=== PATIENT | female | born 1985 | race Caucasian/White ===

== ENCOUNTER 2016-05-21 01:15 | Emergency (ER) | payer BC ==
[~2016-05-21] VITALS: Ht 152.4 cm; Wt 87.4 kg
[~2016-05-21 01:15] MED LIST: ONDA4TAB10 SL; OXYC-57 PO
[2016-05-21 01:20] VITALS: TEMP 36.6; Ht 152.4 cm; Wt 87.4 kg
[2016-05-21] MEDS ORDERED: AMOXICILLIN 250 MG CAP PO STA (01:39)
[2016-05-21] MEDS ORDERED: OXYCODONE IR HOME PACK PO ONE (01:45)
[2016-05-21 01:51] VITALS: BP 126/63; PULSE 71; O2SAT 98
[2016-05-21] MEDS ORDERED: AMOX500C3 PO (01:55)
[2016-05-21] MEDS ORDERED: NAPR-1169 PO (02:02)
[2016-05-21] MEDS ORDERED: SUMA100T16 PO (02:03)
[2016-05-21] MEDS ORDERED: CITA20TA4 PO (02:04)
--- NOTE | 2016-05-21 03:15 | EMERGENCY ROOM VISIT NOTE ---
History First contact with patient: 01:25 Chief Complaint: EAR PAIN Stated Complaint: EAR PAIN History of Present Illness The patient is a 31 year old female who presents to the Emergency Room with complaints of left ear pain for the past few days described as aching, ranging in severity currently 6 out of 10. Nothing makes it better or worse. Patient denies cough, congestion, fever, chills, chest pain, dyspnea, dental pain, sore throat, dysphagia, neck pain, numbness, dizziness, loss of hearing. No injury to the area. Review of Systems See HPI for pertinent positives & negatives. A total of 10 systems reviewed and were otherwise negative. Past Medical/Surgical History Medical Problems: (1) Ovarian cyst Surgical Problems: (1) H/O section (2) H/O tubal ligation (3) History of cholecystectomy Family History Ovarian fibroids (mother) Seizures Social History Smoking Status: Never Smoker Alcohol Use: none Drug Use: none Marital Status: in relationship Housing Status: lives with significant other Occupation Status: employed Current/Historical Medications Scheduled Amoxicillin (Amoxil), 500 MG PO TID Citalopram Hydrobromide (Citalopram Hydrobromide), 20 MG PO DAILY Naproxen (Naprosyn), 500 MG PO BID Sumatriptan Succinate (Imitrex), 100 MG PO PRN Allergies Coded Allergies: Morphine (Verified Allergy, Unknown, RASH,GI UPSET,MIGRAINE, 05/21/16) Physical Exam Vital Signs Date Time Temp Pulse Resp B/P Pulse Ox O2 Delivery O2 Flow Rate FiO2 05/21/16 01:51 71 16 126/63 98 05/21/16 01:20 36.6 71 18 129/77 98 Room Air Pain Rating (0-10): 8.0 Physical Exam VITALS: Vitals are noted on the nurse's note and reviewed by myself. Vital signs stable. GENERAL: Pleasant female, in no acute distress, nondiaphoretic, well-developed well-nourished. SKIN: The skin was without rashes, erythema, edema, or bruising. There is no tenting of the skin. Capillary reflex less than 2 seconds. HEAD: Normocephalic atraumatic. EARS: Left tympanic membrane erythematous concerning for possible early otitis media, right External auditory canals clear, tympanic membranes pearly goode without erythema or effusion no mastoid tenderness bilaterally. EYES: Pupils equal round and reactive to light and accommodation. Conjunctivae without injection, sclerae without icterus. Extraocular movements intact. NOSE: Patent, turbinates without inflammation or discharge. No sinus tenderness. MOUTH: Mucous membranes moist. Pharynx without erythema or exudate. Uvula midline. Airway patent. Tongue does not deviate. Dental exam: No loose teeth. No palpable abscess. Overall dental hygiene fair. A few missing teeth NECK: Supple without nuchal rigidity. No lymphadenopathy. No thyromegaly. Cervical spine is nontender. No JVD. HEART: Regular rate and rhythm without murmurs gallops or rubs. LUNGS: Clear to auscultation bilaterally without wheezes, rales or rhonchi. No dullness to percussion. No retractions or accessory muscle use. ABDOMEN: Positive bowel sounds x 4. Normal tympanic percussion. Soft, nontender, without masses or organomegaly. Mccarty sign negative. No guarding or rebound tenderness. MUSCULOSKELETAL: No muscle atrophy, erythema, or edema noted. NEURO: Patient was alert and oriented to person place and time. Normal sensation to light and sharp touch. No focal neurological deficits. Medical Decision & Procedures Medications Administered Medications (Trade) Dose Ordered Sig/Sallie Route Start Time Stop Time Status Last Admin Dose Admin Amoxicillin (Amoxil Cap) 500 mg NOW STAT PO 05/21/16 01:39 05/21/16 01:40 DC 05/21/16 01:51 500 MG Oxycodone HCl (Roxicodone Immediate Rel 5MG Home Pack) 1 homepack UD ONCE PO 05/21/16 01:45 05/21/16 01:46 DC 05/21/16 01:51 1 HOMEPACK ED Course Prior records reviewed and summarized as above. Triage Nursing notes reviewed. The patient's history was concerning for ear pain Differential diagnosis: Etiologies such as otitis, dental infection, sinusitis, mastoiditis, cellulitis , abscess, as well as others were entertained.. Physical examination: The physical examination was consistent with otitis media ER treatment provided: Amoxicillin On reassessment the patient felt better. Diagnostics interpreted by me: Deferred This appears to be otitis media. Patient was started on antibiotics. She is advised follow-up with medicine in a week or here in the ER sooner for severe pain, fevers, neck stiffness, worsening signs or symptoms or as needed. Patient had no signs of mastoiditis or meningitis. She was well-appearing. The pt informed about the findings as listed above. All questions were answered and pleased with the treatment. Return instructions were outlined and the patient was discharged in stable condition. Outpatient prescription management: Amoxicillin Referral: The patient was referred back to primary care physician for follow-up in 2 to 3 days for a recheck of the current condition. Medical Decision As above Impression Primary Impression: Left otitis media Departure Information Dispostion Home / Self-Care Condition GOOD Prescriptions Amoxicillin (AMOXIL) 500 Mg Cap 500 MG PO TID for 10 Days, #30 CAP Prov: Joan Park .SALVADOR 05/21/16 Forms WORK / SCHOOL INSTRUCTIONS, HOME CARE DOCUMENTATION FORM, IMPORTANT VISIT INFORMATION Patient Instructions [facility] Additional Instructions Amoxicillin 500mg: Take one pill 3 times daily for 10 days for your infection. All antibiotics can cause diarrhea. If this occurs and you feel worse or it does not resolve in 1-2 days follow up with your doctor or return to the Emergency Department as this could be signs of serious underlying problems. Any medication can cause an allergic reaction, stop the pills immediately and return to the ER for rash, hives, breathing difficulties, or swelling. Oxycodone (OxyIR) 5mg: Take 1-2 pills every four hours for breakthrough pain. Avoid alcohol, operating machinery or dangerous equipment, working on ladders or roofs, DRIVING, or situations where being under the influence may be dangerous. It is recommended to use an [id number] stool softener such as Colace, 100mg twice daily while taking this medication to avoid constipation. Ibuprofen(Motrin, Advil) may be used for fever or pain. Use 600mg every six hours as needed. Take with food. Avoid using more than 2400mg in a 24 hour period. Do not use 2400mg per day for more than three consecutive days without physician direction. Prolonged inappropriate use can lead to stomach upset or ulcers. This medication can be taken if you need to drive, work, or perform activities which may be dangerous when taking narcotic pain medication. (AND/OR) Acetaminophen(Tylenol) may be used for fever or pain. Use 1000mg every six hours as needed. Avoid using more than 3000mg in a 24 hour period. This medication can be taken if you need to drive, work, or perform activities which may be dangerous when taking narcotic pain medication. Follow-up family care in 2-3 days. Return to ER sooner for neck stiffness, facial swelling, fever, redness, worsening signs or symptoms or as needed.
== END 2016-05-21 02:00 | disposition home or self-care (01) ==
LOC: C.EDB 01:16 → C.EDC 02:00
DX: H66.92 Otitis media, unspecified, left ear (principal); Z79.899 Other long term (current) drug therapy; Z84.2 Family history of other diseases of the genitourinary system; Z84.89 Family history of other specified conditions

== ENCOUNTER 2016-06-04 23:33 | Emergency (ER) | payer BC ==
[~2016-06-04] VITALS: Ht 152.4 cm; Wt 88.4 kg
[~2016-06-04 23:33] MED LIST changes: +CITA20TA4 PO; +NAPR-1169 PO; -ONDA4TAB10 SL; -OXYC-57 PO; +SUMA100T16 PO
[2016-06-04 23:42] VITALS: TEMP 36.8; Ht 152.4 cm; Wt 88.4 kg
[2016-06-04] MEDS ORDERED: KETOROLAC TROMETHAMINE 30 MG/ML VIAL IV STA (23:56)
[2016-06-05] MEDS ORDERED: OPTIRAY 320 IV PRN (00:15)
[2016-06-05 00:21] LABS: BASO % 0.2 %; BASO ABS # 0.03 K/uL (0-0.2); COMPLETE YES; EOS % 2.4 %; HEMATOCRIT 36.1 % (37-47); IG% 0.2 %; LYMPH ABS # 3.07 K/uL (1.2-3.4); MEAN CELL VOLUME 84.7 fL (80-100); MEAN CORPUSCULAR HEMOGLOBIN 27.5 pg (25-34); MEAN CORPUSCULAR HGB CONC 32.4 g/dl (32-36); MEAN PLATELET VOLUME 8.6 fL (7.4-10.4); MONO % 6.8 %; NEUT % 68.4 %; PLATELET COUNT 388 K/uL (130-400); RED BLOOD COUNT 4.26 M/uL (4.2-5.4); WHITE BLOOD COUNT 13.96 K/uL (4.8-10.8)
[2016-06-05 00:38] LABS: BUN/CREATININE RATIO 19.8 (10-20); C-REACTIVE PROTEIN 0.75 mg/dl (0-0.29); CALCIUM 8.5 mg/dl (8.5-10.1); CREATININE 0.77 mg/dl (0.60-1.20); POTASSIUM 3.7 mmol/L (3.5-5.1)
[2016-06-05 00:55] LABS: PREG INTERNAL NEGATIVE QC NEG CLEAR BACKGROUND; PREG INTERNAL POSITIVE QC POS CONTROL LINE
[2016-06-05] MEDS ORDERED: AMOXICIL/CLAVU 875MG HOME PACK PO ONE (01:30)
[2016-06-05] MEDS ORDERED: DEXAMETHASONE SOD INJ 10 MG/ML VIAL IV ONE (01:30)
[2016-06-05] MEDS ORDERED: PRED50TA PO (01:33)
[2016-06-05] MEDS ORDERED: AMOX875T PO (01:33)
[2016-06-05] MEDS ORDERED: OXYCODONE IR HOME PACK PO ONE ×2 (01:39→01:45)
[2016-06-05 01:44] VITALS: BP 122/82; PULSE 78; O2SAT 100
--- NOTE | 2016-06-05 01:54 | EMERGENCY ROOM VISIT NOTE ---
History First contact with patient: 23:45 Chief Complaint: EAR PAIN Stated Complaint: EAR PAIN History of Present Illness The patient is a 31 year old female who presents to the Emergency Room with complaints of left-sided facial pain for the past month and a half who has been on antibiotics and seeing the dentist is no improvement of symptoms. She describes it as aching, ranging in severity 6 out of 10 that occasionally radiates to her neck and into her face. Patient denies inner ear pain, headache , neck stiffness, sore throat, chest pain, dyspnea, numbness, tingling, bruxism. No injury to the area. Patient does see neurology for her migraines. She cannot recall her neurologist's name. She states she has the name at home. Review of Systems See HPI for pertinent positives & negatives. A total of 10 systems reviewed and were otherwise negative. Past Medical/Surgical History Medical Problems: (1) Ovarian cyst Surgical Problems: (1) H/O section (2) H/O tubal ligation (3) History of cholecystectomy Migraines Family History Ovarian fibroids (mother) Seizures Social History Smoking Status: Never Smoker Alcohol Use: none Drug Use: none Marital Status: in relationship Housing Status: lives with significant other Occupation Status: employed Current/Historical Medications Scheduled Amoxicillin & Pot Clavulanate (Augmentin 875-125 mg), 1 TAB PO BID Citalopram Hydrobromide (Citalopram Hydrobromide), 20 MG PO DAILY Prednisone (Prednisone), 50 MG PO DAILY Scheduled PRN Sumatriptan Succinate (Imitrex), 100 MG PO UD PRN for Headache Allergies Coded Allergies: Morphine (Verified Allergy, Unknown, RASH,GI UPSET,MIGRAINE, 06/05/16) Physical Exam Vital Signs Date Time Temp Pulse Resp B/P Pulse Ox O2 Delivery O2 Flow Rate FiO2 06/05/16 01:44 78 18 122/82 100 06/05/16 00:57 83 16 124/71 97 Room Air 06/04/16 23:42 36.8 82 16 136/81 99 Room Air Pain Rating (0-10): 2.0 Physical Exam VITALS: Vitals are noted on the nurse's note and reviewed by myself. Vital signs stable. GENERAL: Pleasant female, in no acute distress, nondiaphoretic, well-developed well-nourished. SKIN: The skin was without rashes, erythema, edema, or bruising. There is no tenting of the skin. Capillary reflex less than 2 seconds. HEAD: Normocephalic atraumatic. EARS: External auditory canals clear, tympanic membranes pearly goode without erythema or effusion bilaterally. No mastoid tenderness EYES: Pupils equal round and reactive to light and accommodation. Conjunctivae without injection, sclerae without icterus. Extraocular movements intact. NOSE: Patent, turbinates without inflammation or discharge. No sinus tenderness. MOUTH: Mucous membranes moist. Pharynx without erythema or exudate. Uvula midline. Airway patent. Tongue does not deviate. NECK: Supple without nuchal rigidity. No lymphadenopathy. No thyromegaly. Cervical spine is nontender. No JVD. HEART: Regular rate and rhythm without murmurs gallops or rubs. LUNGS: Clear to auscultation bilaterally without wheezes, rales or rhonchi. No dullness to percussion. No retractions or accessory muscle use. ABDOMEN: Positive bowel sounds x 4. Normal tympanic percussion. Soft, nontender, without masses or organomegaly. Mccarty sign negative. No guarding or rebound tenderness. MUSCULOSKELETAL: No muscle atrophy, erythema, or edema noted. NEURO: Patient was alert and oriented to person place and time. Normal sensation to light and sharp touch. No focal neurological deficits. Mild tenderness over the left facial nerve, no swelling, cranial nerves II-12 grossly intact. No pronator drift. Cerebellar exam intact. Medical Decision & Procedures Laboratory Results 06/05/16 00:15 Red Blood Count 4.26, Mean Corpuscular Volume 84.7, Mean Corpuscular Hemoglobin 27.5, Mean Corpuscular Hemoglobin Concent 32.4, Mean Platelet Volume 8.6, Neutrophils (%) (Auto) 68.4, Lymphocytes (%) (Auto) 22.0, Monocytes (%) (Auto) 6.8, Eosinophils (%) (Auto) 2.4, Basophils (%) (Auto) 0.2, Neutrophils # (Auto) 9.54, Lymphocytes # (Auto) 3.07, Monocytes # (Auto) 0.95, Eosinophils # (Auto) 0.34, Basophils # (Auto) 0.03 06/05/16 00:15 Test 06/05/16 00:15 White Blood Count 13.96 K/uL (4.8-10.8) Red Blood Count 4.26 M/uL (4.2-5.4) Hemoglobin 11.7 g/dL (12.0-16.0) Hematocrit 36.1 % (37-47) Mean Corpuscular Volume 84.7 fL (80-100) Mean Corpuscular Hemoglobin 27.5 pg (25-34) Mean Corpuscular Hemoglobin Concent 32.4 g/dl (32-36) Platelet Count 388 K/uL (130-400) Mean Platelet Volume 8.6 fL (7.4-10.4) Neutrophils (%) (Auto) 68.4 % Lymphocytes (%) (Auto) 22.0 % Monocytes (%) (Auto) 6.8 % Eosinophils (%) (Auto) 2.4 % Basophils (%) (Auto) 0.2 % Neutrophils # (Auto) 9.54 K/uL (1.4-6.5) Lymphocytes # (Auto) 3.07 K/uL (1.2-3.4) Monocytes # (Auto) 0.95 K/uL (0.11-0.59) Eosinophils # (Auto) 0.34 K/uL (0-0.5) Basophils # (Auto) 0.03 K/uL (0-0.2) RDW Standard Deviation 42.7 fL (36.4-46.3) RDW Coefficient of Variation 13.9 % (11.5-14.5) Immature Granulocyte % (Auto) 0.2 % Immature Granulocyte # (Auto) 0.03 K/uL (0.00-0.02) Erythrocyte Sedimentation Rate 14 mm/hr (0-21) Anion Gap 8.0 mmol/L (3-11) Est Creatinine Clear Calc Drug Dose 102.8 ml/min Estimated GFR () 117.6 Estimated GFR (Non- 101.4 BUN/Creatinine Ratio 19.8 (10-20) Calcium Level 8.5 mg/dl (8.5-10.1) C-Reactive Protein 0.75 mg/dl (0-0.29) Amylase Level 210 U/L (25-115) Human Chorionic Gonadotropin, Qual NEG (NEG) Medications Administered Medications (Trade) Dose Ordered Sig/Sallie Route Start Time Stop Time Status Last Admin Dose Admin Ketorolac Tromethamine (Toradol Inj) 30 mg NOW STAT IV 06/04/16 23:56 06/04/16 23:59 DC 06/05/16 00:09 30 MG Dexamethasone Sodium Phosphate (Decadron Inj) 10 mg NOW ONCE IV 06/05/16 01:30 06/05/16 01:31 DC 06/05/16 01:32 10 MG Amoxicillin/ Clavulanate Potassium (Augmentin 875MG Home Pack) 1 homepack UD ONCE PO 06/05/16 01:30 06/05/16 01:31 DC 06/05/16 01:32 1 HOMEPACK Oxycodone HCl (Roxicodone Immediate Rel 5MG Home Pack) 1 homepack STK-MED ONCE PO 06/05/16 01:39 06/05/16 01:40 DC 06/05/16 01:39 1 HOMEPACK ED Course Prior records reviewed and summarized as above. Triage Nursing notes reviewed. The patient's history was concerning for left-sided facial pain Differential diagnosis: Etiologies such as trigeminal neuralgia, otitis, mastoiditis, parotid gland infection, cellulitis, abscess, stone, DVT, bruxism, TMJ, as well as others were entertained.. Physical examination: As above ER treatment provided: Toradol, Augmentin, prednisone On reassessment the patient felt better. Diagnostics interpreted by me: The labs revealed mild leukocytosis. Slightly elevated amylase Imaging studies: CT NECK: Comparison: CT C-spine dated 02/07/2015. Middle ear cavities and mastoid air cells are clear. No abscess, fluid collection, lymphadenopathy or mass. Scattered paranasal disease, most prominent in the ethmoid air cells (R>L). Mild reversal of cervical lordosis which may be related to positioning or muscle spasm. No evidence of fracture. Radiologist: Ivana Crane MD Study ready at 01:03 and initial results transmitted This appears to be left-sided facial pain. This could be trigeminal neuralgia. Patient did have a little bit of a white counts and sinus disease on CT imaging so was started on antibiotics. She is given referral to ENT and advised to follow-up with her neurologist this week. She is advised to keep a log of her symptoms and what exacerbates her symptoms. She is advised to return to the ER immediately for high fevers, neck stiffness, lethargy, confusion, worsening signs or symptoms or as needed. Patient had no signs of meningitis. No signs of airway compromise. Patient was neurovascularly and neurologically intact. By the evaluation outlined above emergent etiologies such as abscess, necrotizing fasciitis, DVT, as well as others were deemed relatively unlikely. The pt informed about the findings as listed above. All questions were answered and pleased with the treatment. Return instructions were outlined and the patient was discharged in stable condition. Outpatient prescription management: Augmentin, prednisone Referral: The patient was referred back to ENT, neurology and primary care physician for follow-up in 2 to 3 days for a recheck of the current condition. Case reviewed with my attending Medical Decision As above Impression Primary Impression: Left facial pain Departure Information Dispostion Home / Self-Care Condition GOOD Prescriptions Prednisone (Prednisone) 50 Mg Tab 50 MG PO DAILY for 4 Days, #4 TAB Prov: Joan Park PA-C 06/05/16 Amoxicillin & Pot Clavulanate (Augmentin 875-125 mg) 1 Tab Tab 1 TAB PO BID for 9 Days, #18 TAB Prov: Joan Park PA-C 06/05/16 Referrals Jossue Garcia D.O. Forms WORK / SCHOOL INSTRUCTIONS, HOME CARE DOCUMENTATION FORM, IMPORTANT VISIT INFORMATION Patient Instructions [facility], ED Neuralgia Trigeminal Additional Instructions Prednisone 50mg: Once daily until the prescription is finished. It is best to take this earlier in the day as some patients note occasional difficulty falling asleep when taken in the late evening. Augmentin 875 mg: Take one tablet twice a day for 10 days. All antibiotics can cause diarrhea. If this occurs and you feel worse or it does not resolve in 1-2 days follow up with your doctor or return to the Emergency Department as this could be signs of serious underlying problems. Any medication can cause an allergic reaction, stop the pills immediately and return to the ER for rash, hives, breathing difficulties, or swelling. Acetaminophen(Tylenol) may be used for fever or pain. Use 1000mg every six hours as needed. Avoid using more than 3000mg in a 24 hour period. (AND/OR) Ibuprofen(Motrin, Advil) may be used for fever or pain. Use 600mg every six hours as needed. Take with food. Avoid using more than 2400mg in a 24 hour period. Do not use 2400mg per day for more than three consecutive days without physician direction. Prolonged inappropriate use can lead to stomach upset or ulcers. Rest and drink plenty of fluids. Afrin nasal spray: 2-3 sprays to each nostril twice daily as needed for congestion. Do not use for more than 3-4 days because it can lead to worsening rebound congestion. Pseudoephedrine(Sudaphed): 30-60mg every 6 hours as needed for nasal congestion. Do not take this with other stimulant products or supplements. Rest and drink plenty of fluids. Controlling your fever with Tylenol and Ibuprofen as above will make you feel better. Wash your hands after nose blowing, sneezing, or coughing. Most germs are spread through contact, therefore improper hygiene may result in your close contacts and loved ones becoming ill just like you. Continue current medications. Return to the ER for severe headache, neck stiffness, chest pain, difficulty breathing, fevers, vomiting, worsening of your condition, or as needed. Follow up with your primary physician and ENT this week for a recheck of your current condition. Call for an appointment.
--- NOTE | 2016-06-05 07:10 | DIAGNOSTIC IMAGING REPORT ---
CT OF THE NECK WITH CONTRAST CT DOSE: 691.82 mGy.cm CLINICAL HISTORY: Left ear and neck pain. TECHNIQUE: Axial images of the neck were obtained following intravenous injection of 93 cc of Optiray 320 IV. COMPARISON STUDY: None. FINDINGS: Visualized portions of the intracranial contents are unremarkable. The mastoid air cells are clear. There is no fluid within the middle ears. Orbits are unremarkable. There is moderate mucosal thickening of the ethmoid sinuses and polypoid mucosal thickening of the left maxillary sinus. No abscess or lymphadenopathy is identified within the neck. Major vasculature of the neck is patent. Lung apices are clear. No suspicious skeletal lesions are identified. There is no significant infiltration within the neck. The parotid, submandibular and thyroid glands are unremarkable. IMPRESSION: 1. No abscess or lymphadenopathy within the neck. 2. No fluid within the mastoid air cells or middle ears. 3. Moderate thickening of the sinuses, most evident within the ethmoid sinuses. Electronically signed by: Sacha Gaines M.D. 06/05/2016 7:09 AM Dictated Date/Time: 06/05/2016 7:04 AM
== END 2016-06-05 01:45 | disposition home or self-care (01) ==
LOC: C.EDB 23:34 → C.EDC 06-05 01:45
DX: R51 Headache (principal)

== ENCOUNTER 2016-06-10 09:32 | Emergency (ER) | payer BC ==
[~2016-06-10] VITALS: Ht 152.4 cm; Wt 89.6 kg
[~2016-06-10 09:32] MED LIST changes: +AMOX875T PO; -NAPR-1169 PO; +PRED50TA PO
[2016-06-10 09:33] VITALS: TEMP 36.4; Ht 152.4 cm; Wt 89.6 kg
[2016-06-10] MEDS ORDERED: KETOROLAC TROMETHAMINE 30 MG/ML VIAL IV STA (09:48)
[2016-06-10] MEDS ORDERED: ONDANSETRON INJ 2 MG/ML 2 ML VIAL IV STA (09:48)
[2016-06-10] MEDS ORDERED: HYDROmorphone INJ 1 MG/ML SYR IV STA (09:48)
--- NOTE | 2016-06-10 10:02 | EMERGENCY ROOM VISIT NOTE ---
History Report prepared by Dominguez: Magdy Anderson Under the Supervision of: Dr. Carroll Beckwith M.D. First contact with patient: 09:41 Chief Complaint: NECK PAIN Stated Complaint: NECK PAIN History of Present Illness The patient is a 31 year old female who presents to the Emergency Room with complaints of worsening, constant, burning left neck pain for the past few weeks. The patient states that the pain goes up her neck into her face, and she occasionally has sharp ear pain. The patient states that the pain started in her ear, and she saw a doctor, and they told her that it was trigeminal nerve disorder and TMJ. She states that she was put on seizure medication and pain medication. Source of History: patient Onset: A couple weeks ago Position: neck (left) Quality: burning Timing: constant, worsening Note: Associated symptoms: Facial pain and ear pain Review of Systems See HPI for pertinent positives & negatives. A total of 10 systems reviewed and were otherwise negative. Past Medical & Surgical Medical Problems: (1) Ovarian cyst Surgical Problems: (1) H/O section (2) H/O tubal ligation (3) History of cholecystectomy Family History Ovarian fibroids (mother) Seizures Social History Smoking Status: Former Smoker Alcohol Use: none Drug Use: none Marital Status: in relationship Housing Status: lives with significant other Occupation Status: employed Current/Historical Medications Scheduled Amoxicillin & Pot Clavulanate (Augmentin 875-125 mg), 1 TAB PO BID Citalopram Hydrobromide (Citalopram Hydrobromide), 20 MG PO DAILY Scheduled PRN Sumatriptan Succinate (Imitrex), 100 MG PO UD PRN for Headache Allergies Coded Allergies: Morphine (Verified Allergy, Unknown, RASH,GI UPSET,MIGRAINE, 06/10/16) Physical Exam Vital Signs Date Time Temp Pulse Resp B/P Pulse Ox O2 Delivery O2 Flow Rate FiO2 06/10/16 12:29 84 18 132/75 95 Room Air 06/10/16 09:33 36.4 89 18 152/79 97 Room Air Physical Exam CONSTITUTIONAL: Moderate painful distress HEENT: No icterus, moist mucous membranes NECK: Full range of motion. No meningismus, trachea is midline. CARDIOVASCULAR: Regular rate, normal perfusion RESPIRATORY: Unlabored breathing. Clear to auscultation. GASTROINTESTINAL: Non-tender GENITOURINARY: No flank tenderness MUSCULOSKELETAL: Full range of motion NEUROLOGIC: No acute gross focal deficits. PSYCHIATRIC: Normal affect SKIN: Normal for ethnicity. Medical Decision & Procedures ER Provider Diagnostic Interpretation: MRI results as stated below per my review and radiologist interpretation. MRI OF THE CERVICAL SPINE COMBO CLINICAL HISTORY: Neck pain of several weeks' duration. COMPARISON STUDY: CT scan of the neck dated 06/05/2016. CT scan of the cervical spine dated 02/07/2015. TECHNIQUE: MRI of the cervical spine is performed utilizing various T1 and T2-weighted sequences in the axial and sagittal planes. Contrast-enhanced sequences were acquired following the IV administration of 9 cc of Gadavist. The examination is modestly degraded by motion artifact. FINDINGS: Cervical spine: Vertebral body height and alignment are maintained throughout the cervical spine. Normal marrow signal intensity is preserved throughout the visualized bony structures. There is mild straightening of the cervical lordosis. The spinous processes are intact. The atlantodental articulation appears maintained. Intervertebral discs: Normal in height and signal intensity. Spinal cord: The cervical spinal cord is normal in morphology and signal intensity. No abnormal enhancement is seen on the postcontrast images. C2-C3: Unremarkable. C3-C4: Unremarkable. C4-C5: Unremarkable. C5-C6: Unremarkable. C6-C7: Unremarkable. C7-T1: Unremarkable. Soft tissues: The prevertebral and paraspinous soft tissues are within normal limits. Brain parenchyma: The visualized brain parenchyma at the skull base is within normal limits. IMPRESSION: Unremarkable MRI of the cervical spine. Dictated: 06/10/2016 12:34 PM Transcribed: 06/10/2016 12:54 PM Augustina Electronically signed by: Josue Navarro M.D. 06/10/2016 1:02 PM Dictated Date/Time: 06/10/2016 12:34 PM MRI OF THE BRAIN COMBO CLINICAL HISTORY: Headache. COMPARISON STUDY: CT of the brain dated 10/14/2015. TECHNIQUE: MRI of the brain was performed utilizing various T1 and T2-weighted sequences in the axial, sagittal, and coronal planes. Contrast-enhanced sequences were acquired following the administration of 9 cc of Gadavist. FINDINGS: Brain parenchyma: The brain parenchyma is normal in appearance. There is no hemorrhage or mass effect. There is no restricted diffusion to suggest acute ischemia. No enhancing mass lesion is identified on the postcontrast images. Mc-white matter differentiation is preserved. No extra-axial fluid collection is seen. The cerebellar tonsils are normal in configuration. Ventricles, sulci, and cisterns: Normal in configuration. Pituitary and sella: Unremarkable. Intracranial vasculature: Normal flow voids are maintained at the skull base. Orbits: The bony orbits are grossly intact. Orbital contents are normal in appearance. Sinuses and mastoids: There is no air-fluid level in the left maxillary antrum. Mild mucosal thickening is present within the ethmoid sinuses and the sphenoid sinuses. The mastoid air cells are clear. Calvarium: Unremarkable. Cervical cord: Partially visualized cervical spinal cord is normal in morphology and signal intensity. IMPRESSION: 1. No acute intracranial abnormality. 2. Paranasal sinus disease as above. Electronically signed by: Josue Navarro M.D. 06/10/2016 12:34 PM Dictated Date/Time: 06/10/2016 12:31 PM Medications Administered Medications (Trade) Dose Ordered Sig/Sallie Route Start Time Stop Time Status Last Admin Dose Admin Ketorolac Tromethamine (Toradol Inj) 30 mg NOW STAT IV 06/10/16 09:48 06/10/16 09:56 DC 06/10/16 10:15 30 MG Ondansetron HCl (Zofran Inj) 4 mg NOW STAT IV 06/10/16 09:48 06/10/16 09:56 DC 06/10/16 10:16 4 MG Hydromorphone HCl (Dilaudid Inj) 1 mg PRN STAT IV 06/10/16 09:48 06/10/16 09:56 DC 06/10/16 10:16 1 MG ED Course 0941: Past medical records reviewed. The patient was evaluated in room B3. A complete history and physical examination was performed. 0948: Dilaudid Inj 1mg IV, Zofran Inj 4mg IV, Toradol Inj 30mg IV 1359: Upon reexamination the patient is resting. I discussed results and treatment plan with the patient. She verbalizes agreement and understanding. The patient is ready for discharge. Medical Decision Differential diagnoses include but are not limited to; trigeminal neuropathy, neuropathic pain syndrome, herniated disc. 31-year-old presents into the emergency room for evaluation of worsening diffuse left sided supple and occasional headache which is constant for many days. She reportedly states that she was told she had trigeminal neuralgia here in the emergency room and she emphasized that her pain is constant and not intermittent. She subsequently followed up with ENT who prescribed carbamezipime and she was advised to follow-up with neurology but could not obtain an appointment for over 2 months. She therefore presents into the emergency room. She notes she was given Percocets by other providers. MRI of head and C-spine today negative. Case management arrange follow-up with neurology on Sunday. Patient advised to continue her carbamezipime and discuss any further analgesic needs up with a neurologist. Impression Primary Impression: Facial pain syndrome Scribe Attestation The scribe's documentation has been prepared under my direction and personally reviewed by me in its entirety. I confirm that the note above accurately reflects all work, treatment, procedures, and medical decision making performed by me. Departure Information Dispostion Home / Self-Care Referrals Benjie Nieto M.D. (PCP) Forms HOME CARE DOCUMENTATION FORM, IMPORTANT VISIT INFORMATION, WORK / SCHOOL INSTRUCTIONS Patient Instructions ED Chronic Pain Management, My [facility]
--- NOTE | 2016-06-10 12:35 | DIAGNOSTIC IMAGING REPORT ---
MRI OF THE BRAIN COMBO CLINICAL HISTORY: Headache. COMPARISON STUDY: CT of the brain dated 10/14/2015. TECHNIQUE: MRI of the brain was performed utilizing various T1 and T2-weighted sequences in the axial, sagittal, and coronal planes. Contrast-enhanced sequences were acquired following the administration of 9 cc of Gadavist. FINDINGS: Brain parenchyma: The brain parenchyma is normal in appearance. There is no hemorrhage or mass effect. There is no restricted diffusion to suggest acute ischemia. No enhancing mass lesion is identified on the postcontrast images. Mc-white matter differentiation is preserved. No extra-axial fluid collection is seen. The cerebellar tonsils are normal in configuration. Ventricles, sulci, and cisterns: Normal in configuration. Pituitary and sella: Unremarkable. Intracranial vasculature: Normal flow voids are maintained at the skull base. Orbits: The bony orbits are grossly intact. Orbital contents are normal in appearance. Sinuses and mastoids: There is no air-fluid level in the left maxillary antrum. Mild mucosal thickening is present within the ethmoid sinuses and the sphenoid sinuses. The mastoid air cells are clear. Calvarium: Unremarkable. Cervical cord: Partially visualized cervical spinal cord is normal in morphology and signal intensity. IMPRESSION: 1. No acute intracranial abnormality. 2. Paranasal sinus disease as above. Electronically signed by: Josue Navarro M.D. 06/10/2016 12:34 PM Dictated Date/Time: 06/10/2016 12:31 PM
--- NOTE | 2016-06-10 12:54 | DIAGNOSTIC IMAGING REPORT ---
MRI OF THE CERVICAL SPINE COMBO CLINICAL HISTORY: Neck pain of several weeks' duration. COMPARISON STUDY: CT scan of the neck dated 06/05/2016. CT scan of the cervical spine dated 02/07/2015. TECHNIQUE: MRI of the cervical spine is performed utilizing various T1 and T2-weighted sequences in the axial and sagittal planes. Contrast-enhanced sequences were acquired following the IV administration of 9 cc of Gadavist. The examination is modestly degraded by motion artifact. FINDINGS: Cervical spine: Vertebral body height and alignment are maintained throughout the cervical spine. Normal marrow signal intensity is preserved throughout the visualized bony structures. There is mild straightening of the cervical lordosis. The spinous processes are intact. The atlantodental articulation appears maintained. Intervertebral discs: Normal in height and signal intensity. Spinal cord: The cervical spinal cord is normal in morphology and signal intensity. No abnormal enhancement is seen on the postcontrast images. C2-C3: Unremarkable. C3-C4: Unremarkable. C4-C5: Unremarkable. C5-C6: Unremarkable. C6-C7: Unremarkable. C7-T1: Unremarkable. Soft tissues: The prevertebral and paraspinous soft tissues are within normal limits. Brain parenchyma: The visualized brain parenchyma at the skull base is within normal limits. IMPRESSION: Unremarkable MRI of the cervical spine. Dictated: 06/10/2016 12:34 PM Transcribed: 06/10/2016 12:54 PM Augustina Electronically signed by: Josue Navarro M.D. 06/10/2016 1:02 PM Dictated Date/Time: 06/10/2016 12:34 PM
[2016-06-10 14:37] VITALS: BP 132/75; PULSE 84; O2SAT 95
== END 2016-06-10 14:40 | disposition home or self-care (01) ==
LOC: C.EDB 09:33
DX: R51 Headache (principal); G50.0 Trigeminal neuralgia; N83.209 Unspecified ovarian cyst, unspecified side; Z98.51 Tubal ligation status; Z90.49 Acquired absence of other specified parts of digestive tract; Z87.891 Personal history of nicotine dependence; Z79.899 Other long term (current) drug therapy; Z88.5 Allergy status to narcotic agent; Z82.0 Family history of epilepsy and other diseases of the nervous system

== ENCOUNTER 2016-12-01 14:08 | Emergency (ER) | payer BC ==
[~2016-12-01] VITALS: Ht 152.4 cm; Wt 87.0 kg
[~2016-12-01 14:08] MED LIST changes: -AMOX875T PO; -PRED50TA PO
[2016-12-01 14:12] VITALS: Ht 152.4 cm; Wt 87.0 kg
[2016-12-01] MEDS ORDERED: MoRPHine SULFATE 4 MG/ML 1 ML CARP\\VIAL IV STA (14:27)
[2016-12-01] MEDS ORDERED: SODIUM CHLORIDE 0.9% 1000ML 1,000 ML IV STA (14:27)
[2016-12-01] MEDS ORDERED: ONDANSETRON INJ 2 MG/ML 2 ML VIAL IV STA (14:31)
[2016-12-01] MEDS ORDERED: HYDROmorphone INJ 0.5 MG/0.5 ML SYR IV STA ×2 (14:31→17:01)
[2016-12-01 14:47] LABS: BASO % 0.4 %; BASO ABS # 0.03 K/uL (0-0.2); COMPLETE YES; EOS % 2.8 %; HEMATOCRIT 33.9 % (37-47); LYMPH ABS # 2.89 K/uL (1.2-3.4); MEAN CORPUSCULAR HEMOGLOBIN 27.8 pg (25-34); MEAN CORPUSCULAR HGB CONC 32.7 g/dl (32-36); MONO % 6.1 %; NEUT % 51.7 %; PLATELET COUNT 382 K/uL (130-400); RED BLOOD COUNT 3.99 M/uL (4.2-5.4); WHITE BLOOD COUNT 7.41 K/uL (4.8-10.8)
[2016-12-01] MEDS ORDERED: GABA-113 PO (15:01)
[2016-12-01 15:06] LABS: ALT/SGPT 21 U/L (12-78); AST/SGOT 13 U/L (15-37); BLOOD UREA NITROGEN 6 mg/dl (7-18); BUN/CREATININE RATIO 9.4 (10-20); CALCIUM 8.5 mg/dl (8.5-10.1); CARBON DIOXIDE 27 mmol/L (21-32); CHLORIDE 108 mmol/L (98-107); CREATININE 0.63 mg/dl (0.60-1.20); GLUCOSE 91 mg/dl (70-99); POTASSIUM 3.6 mmol/L (3.5-5.1); SODIUM 140 mmol/L (136-145)
[2016-12-01 15:09] LABS: ALKALINE PHOSPHATASE 82 U/L (45-117)
--- NOTE | 2016-12-01 16:00 | EMERGENCY ROOM VISIT NOTE ---
History First contact with patient: 14:15 Chief Complaint: ABDOMINAL PAIN Stated Complaint: STOMACH PAIN/LOWER BACK Nursing Triage Summary: pt reports left lower abd pain that started this am. pt reports nausea. pt denies any diarrhea or constipation. History of Present Illness The patient is a 31 year old female who presents to the Emergency Room with complaints of left lower abdominal pain that started abruptly at 10 AM today. She describes the pain as a constant ache with occasional worsening sharp/ shooting pains, the pain does not radiate, worse with certain movements and walking, better with rest, rates as 7/10. She took ibuprofen 400 mg at 10:30 AM without any improvement. She has associated nausea that comes and goes, no vomiting, denies fevers or chills, denies chest pain, shortness of breath, dizziness or passing out, changes in bowel habits or urinary symptoms. Patient states her last menstrual period was one and half weeks ago and was normal. She does have a history of an ovarian cyst in the past, but states this feels different to her. She also has had bilateral tubal ligation in 2007, gallbladder surgery in 2010, and 2 previous C-sections. Review of Systems A complete 10 point review of systems was reviewed with the patient with pertinent positives and negatives as per history of present illness. All else were negative. Past Medical/Surgical History Medical Problems: (1) Ovarian cyst Surgical Problems: (1) H/O section (2) H/O tubal ligation (3) History of cholecystectomy Family History Ovarian fibroids (mother) Seizures Social History Smoking Status: Current Every Day Smoker Alcohol Use: none Drug Use: none Marital Status: in relationship Housing Status: lives with significant other Occupation Status: employed Current/Historical Medications Scheduled Gabapentin (Neurontin), 300 MG PO BID Ondasetron Odt (Zofran Odt), 4 MG SL Q6H Scheduled PRN Sumatriptan Succinate (Imitrex), 100 MG PO UD PRN for Headache Allergies Coded Allergies: Morphine (Verified Allergy, Unknown, RASH,GI UPSET,MIGRAINE, 12/01/16) Physical Exam Vital Signs Date Time Temp Pulse Resp B/P (MAP) Pulse Ox O2 Delivery O2 Flow Rate FiO2 12/01/16 19:10 36.6 84 18 111/76 98 12/01/16 19:10 81 16 113/81 98 Room Air 8/4/17 17:23 84 18 111/76 12/01/16 15:04 84 12/01/16 14:12 36.6 83 20 124/77 98 Room Air Physical Exam CONSTITUTIONAL: No acute distress. Well appearing and well nourished. Alert and oriented X 4 with normal affect. HEENT: Normocephalic, atraumatic. Pupils equal, round and reactive to light, EOMI. TMs normal. Pharynx normal. Moist mucous membranes. NECK: Supple, full active range of motion without discomfort. RESPIRATORY: Clear to auscultation bilaterally with no wheezing, crackles, rhonchi or stridor. Equal expansion bilaterally. CARDIOVASCULAR: Regular rate and rhythm with no murmurs, rubs or gallops. Normal peripheral perfusion. No edema. GASTROINTESTINAL: Point tender over the left lower abdomen consistent with position of the left ovary, no rebound tenderness or guarding, no flank pain or CVA tenderness, no palpable mass. Soft, nondistended. Bowel sounds present in all quadrants. Pelvic exam offered to the patient, she defers this exam. MUSCULOSKELETAL: Full range of motion of all joints without discomfort. INTEGUMENTARY: No rash or other significant dermatologic conditions noted. NEUROLOGIC: Cranial nerves II-XII grossly intact. No focal neurologic deficits noted. Medical Decision & Procedures ER Provider Diagnostic Interpretation: PELVIC ULTRASOUND, TRANSABDOMINAL AND TRANSVAGINAL HISTORY: Left lower quadrant pain. COMPARISON: Abdomen and pelvis CT 03/22/2016. FINDINGS: Uterus: 7.2 x 3.8 x 5.5 cm. The uterus is retroflexed. Endometrial stripe: 4 mm in thickness. Trace fluid within the endometrium. Right ovary: Normal in size and demonstrates normal color flow. A few small follicles/cysts. Left ovary: Normal in size and demonstrates normal color flow. A few small follicles/cysts. Miscellaneous:No pelvic free fluid. IMPRESSION: Trace fluid within the endometrium. Otherwise, normal pelvic ultrasound. ----- CT ABD/PELVIS IV CONTRAST ONLY CLINICAL HISTORY: Left flank and left lower quadrant pain COMPARISON STUDY: 03/22/2016 TECHNIQUE: Following the IV administration of 119 mL of Optiray-320, CT scan of the abdomen and pelvis was performed from the lung bases to the proximal femurs. Images are reviewed in the axial, sagittal, and coronal planes. IV contrast was administered without complication. A dose lowering technique was utilized adhering to the principles of ALARA. CT DOSE: 734.23 mGy.cm FINDINGS: Lower chest: There are mild dependent atelectatic changes present. Liver: The contrast-enhanced liver is normal in size, contour, and attenuation. There is no intrahepatic biliary ductal dilatation. The hepatic veins and portal veins are patent. Gallbladder: Surgically absent Spleen: Normal in size and attenuation. Pancreas: Unremarkable. Adrenal glands: Unremarkable. Kidneys: There is symmetric renal cortical enhancement. The kidneys are normal in size without hydronephrosis. Bowel: There are no transition zones indicate bowel obstruction. There is no evidence of acute diverticulitis. The appendix appears normal.. Peritoneum: There is no intraperitoneal free air or abdominal ascites. Vasculature: The abdominal aorta is normal in course and caliber. Adenopathy: None. Pelvic viscera: There is an 18 mm left ovarian follicle. The uterus is retroflexed. Skeletal structures: No destructive osseous lesions are seen. IMPRESSION: 1. No acute intra-abdominal or pelvic findings 2. No evidence of bowel obstruction. No evidence of free air 3. Normal appendix 4. No evidence of acute diverticulitis Laboratory Results 12/01/16 14:40 Red Blood Count 3.99, Mean Corpuscular Volume 85.0, Mean Corpuscular Hemoglobin 27.8, Mean Corpuscular Hemoglobin Concent 32.7, Mean Platelet Volume 8.0, Neutrophils (%) (Auto) 51.7, Lymphocytes (%) (Auto) 39.0, Monocytes (%) (Auto) 6.1, Eosinophils (%) (Auto) 2.8, Basophils (%) (Auto) 0.4, Neutrophils # (Auto) 3.83, Lymphocytes # (Auto) 2.89, Monocytes # (Auto) 0.45, Eosinophils # (Auto) 0.21, Basophils # (Auto) 0.03 12/01/16 14:40 Test 12/01/16 14:27 12/01/16 14:40 12/01/16 18:15 Urine Test NEG (NEG) White Blood Count 7.41 K/uL (4.8-10.8) Red Blood Count 3.99 M/uL (4.2-5.4) Hemoglobin 11.1 g/dL (12.0-16.0) Hematocrit 33.9 % (37-47) Mean Corpuscular Volume 85.0 fL (80-100) Mean Corpuscular Hemoglobin 27.8 pg (25-34) Mean Corpuscular Hemoglobin Concent 32.7 g/dl (32-36) Platelet Count 382 K/uL (130-400) Mean Platelet Volume 8.0 fL (7.4-10.4) Neutrophils (%) (Auto) 51.7 % Lymphocytes (%) (Auto) 39.0 % Monocytes (%) (Auto) 6.1 % Eosinophils (%) (Auto) 2.8 % Basophils (%) (Auto) 0.4 % Neutrophils # (Auto) 3.83 K/uL (1.4-6.5) Lymphocytes # (Auto) 2.89 K/uL (1.2-3.4) Monocytes # (Auto) 0.45 K/uL (0.11-0.59) Eosinophils # (Auto) 0.21 K/uL (0-0.5) Basophils # (Auto) 0.03 K/uL (0-0.2) RDW Standard Deviation 42.8 fL (36.4-46.3) RDW Coefficient of Variation 13.8 % (11.5-14.5) Immature Granulocyte % (Auto) 0.0 % Immature Granulocyte # (Auto) 0.00 K/uL (0.00-0.02) Anion Gap 5.0 mmol/L (3-11) Est Creatinine Clear Calc Drug Dose 124.5 ml/min Estimated GFR () 136.6 Estimated GFR (Non- 117.9 BUN/Creatinine Ratio 9.4 (10-20) Calcium Level 8.5 mg/dl (8.5-10.1) Total Bilirubin 0.2 mg/dl (0.2-1) Direct Bilirubin < 0.1 mg/dl (0-0.2) Aspartate Amino Transf (AST/SGOT) 13 U/L (15-37) Alanine Aminotransferase (ALT/SGPT) 21 U/L (12-78) Alkaline Phosphatase 82 U/L (45-117) Total Protein 6.9 gm/dl (6.4-8.2) Albumin 3.3 gm/dl (3.4-5.0) Urine Color YELLOW Urine Appearance CLEAR (CLEAR) Urine pH 6.5 (4.5-7.5) Urine Specific [place] 1.004 (1.000-1.030) Urine Protein NEG (NEG) Urine Glucose (UA) NEG (NEG) Urine Ketones NEG (NEG) Urine Occult Blood 2+ (NEG) Urine Nitrite NEG (NEG) Urine Bilirubin NEG (NEG) Urine Urobilinogen NEG (NEG) Urine Leukocyte Esterase NEG (NEG) Urine WBC (Auto) 1-5 /hpf (0-5) Urine RBC (Auto) 0-4 /hpf (0-4) Urine Hyaline Casts (Auto) 0 /lpf (0-5) Urine Epithelial Cells (Auto) >30 /lpf (0-5) Urine Bacteria (Auto) NEG (NEG) Medications Administered Medications (Trade) Dose Ordered Sig/Sallie Route Start Time Stop Time Status Last Admin Dose Admin Sodium Chloride 1,000 ml @ 999 mls/hr Q1H1M STAT IV 12/01/16 14:27 12/01/16 15:27 DC 12/01/16 14:53 999 MLS/HR Hydromorphone HCl (Dilaudid Inj) 0.5 mg NOW STAT IV 12/01/16 14:31 12/01/16 14:32 DC 12/01/16 14:55 0.5 MG Ondansetron HCl (Zofran Inj) 4 mg NOW STAT IV 12/01/16 14:31 12/01/16 14:32 DC 12/01/16 14:56 4 MG Hydromorphone HCl (Dilaudid Inj) 0.5 mg NOW STAT IV 12/01/16 17:01 12/01/16 17:04 DC 12/01/16 17:39 0.5 MG Medical Decision CC: Patient presenting with complaint of left lower abdominal pain Interpretation of Labs: No leukocytosis, mild anemia, no significant electrolyte abnormality, renal function normal, liver enzymes normal, no UTI, negative . Differential Diagnosis: Includes, but not limited to ovarian cyst, torsion, ectopic , diverticulitis, ureteral stone, constipation, among others. Medication Reconciliation: I attest that I have personally reviewed the patient' s current medication list. Vital signs review: I reviewed the patient's vital signs and interpret them as follows: T: Afebrile; BP: Normotensive; HR: Within normal limits; RR: Within normal limits; Pulse Ox: Within normal limits on room air. Blood pressure screening: The patient was found to have normal blood pressure on screening and does not require follow-up for repeat blood pressure check. Summary: Patient was evaluated at bedside, history of physical exam performed. Patient is alert and in no acute distress, resting calmly in the stretcher. Clinically tender left lower abdomen, otherwise benign abdominal exam. I am most concerned for possible ovarian torsion versus ovarian cyst. Orders were placed at bedside for labs, UA and urine , IV fluids, Dilaudid and Zofran management, pelvic ultrasound to evaluate for ovarian torsion. Patient discussed with Dr. Lowe, who agrees with my assessment and plan. Labs reviewed as above, unremarkable. Ultrasound results reviewed, negative for any ovarian or other pelvic pathology , specifically no ovarian torsion. Pelvic Exam deferred due to patient refusal. Patient reassessed multiple times throughout ED stay, she continues to be moderately tender in the left lower abdomen after pain meds, with no discernible abnormalities on labs or UA. Due to persistent pain without discernible cause, CT of the abdomen/pelvis with IV contrast was ordered for further evaluation. CT was reviewed, no acute abnormalities. All results were discussed with the patient and she was informed of plan for discharge home. She was instructed to follow closely with her PCP, as well as return precautions should her symptoms progress or worsen. Patient verbalized understanding of all discharge instructions and follow-up plan. Zofran prescription provided to the patient. Patient was discharged home in stable condition and ambulatory. Impression Primary Impression: Left lower quadrant abdominal pain of unknown etiology Departure Information Dispostion Home / Self-Care Condition GOOD Prescriptions Ondasetron Odt (ZOFRAN ODT) 4 Mg Tab 4 MG SL Q6H for Nausea, #6 TAB Prov: Camille Perkins CRNP 12/01/16 Referrals Benjie Nieto M.D. (PCP) Patient Instructions ED Abdominal Pain Unkn Cause, My [facility] Additional Instructions You have been treated in the Emergency Department your Abdominal Pain. Laboratory results and imaging studies have ruled out any emergent causes for your abdominal pain which would warrant admission or surgery. You have been prescribed Zofran to be used for any nausea or vomiting. Take as prescribed. For pain control, you can use the following [id number] medicines (if >12 yo): - Regular strength (325mg/tab) Tylenol (acetaminophen) 2 tabs every 4-6 hours as needed. Do not exceed 10 tablets in a 24 hour period. Avoid taking more than 3 grams (3000 mg) of Tylenol per day. This includes any other sources of acetaminophen you may take on a regular basis. - Regular strength (200 mg/tab) Advil (ibuprofen) 1-2 tabs every 4-6 hours as needed. Do not exceed a dose of 3200 mg per day. Drink plenty of water and stay well hydrated. As with any trip to the Emergency Department, you should follow-up with your Primary Care Provider in the next few days. Return to the emergency department if your symptoms persist despite treatment plan outlined above or if the following symptoms occur: Severe worsening abdominal pain, fevers/chills/feeling ill, worsening nausea/vomiting, blood in your stool or urine, or any other concerns.
--- NOTE | 2016-12-01 16:09 | DIAGNOSTIC IMAGING REPORT ---
PELVIC ULTRASOUND, TRANSABDOMINAL AND TRANSVAGINAL HISTORY: Left lower quadrant pain. COMPARISON: Abdomen and pelvis CT 03/22/2016. FINDINGS: Uterus: 7.2 x 3.8 x 5.5 cm. The uterus is retroflexed. Endometrial stripe: 4 mm in thickness. Trace fluid within the endometrium. Right ovary: Normal in size and demonstrates normal color flow. A few small follicles/cysts. Left ovary: Normal in size and demonstrates normal color flow. A few small follicles/cysts. Miscellaneous:No pelvic free fluid. IMPRESSION: Trace fluid within the endometrium. Otherwise, normal pelvic ultrasound. Electronically signed by: Navin Cedeno M.D. 12/01/2016 4:07 PM Dictated Date/Time: 12/01/2016 4:05 PM
[2016-12-01] MEDS ORDERED: OPTIRAY 320 IV PRN (17:15)
--- NOTE | 2016-12-01 18:10 | DIAGNOSTIC IMAGING REPORT ---
CT ABD/PELVIS IV CONTRAST ONLY CLINICAL HISTORY: Left flank and left lower quadrant pain COMPARISON STUDY: 03/22/2016 TECHNIQUE: Following the IV administration of 119 mL of Optiray-320, CT scan of the abdomen and pelvis was performed from the lung bases to the proximal femurs. Images are reviewed in the axial, sagittal, and coronal planes. IV contrast was administered without complication. A dose lowering technique was utilized adhering to the principles of ALARA. CT DOSE: 734.23 mGy.cm FINDINGS: Lower chest: There are mild dependent atelectatic changes present. Liver: The contrast-enhanced liver is normal in size, contour, and attenuation. There is no intrahepatic biliary ductal dilatation. The hepatic veins and portal veins are patent. Gallbladder: Surgically absent Spleen: Normal in size and attenuation. Pancreas: Unremarkable. Adrenal glands: Unremarkable. Kidneys: There is symmetric renal cortical enhancement. The kidneys are normal in size without hydronephrosis. Bowel: There are no transition zones indicate bowel obstruction. There is no evidence of acute diverticulitis. The appendix appears normal.. Peritoneum: There is no intraperitoneal free air or abdominal ascites. Vasculature: The abdominal aorta is normal in course and caliber. Adenopathy: None. Pelvic viscera: There is an 18 mm left ovarian follicle. The uterus is retroflexed. Skeletal structures: No destructive osseous lesions are seen. IMPRESSION: 1. No acute intra-abdominal or pelvic findings 2. No evidence of bowel obstruction. No evidence of free air 3. Normal appendix 4. No evidence of acute diverticulitis Electronically signed by: Barrett Perez M.D. 12/01/2016 6:09 PM Dictated Date/Time: 12/01/2016 6:05 PM
[2016-12-01 18:33] LABS: URINE APPEARANCE CLEAR (CLEAR); URINE BILIRUBIN NEG (NEG); URINE COLOR YELLOW; URINE EPITHELIAL CELL AUTO >30 /lpf (0-5); URINE NITRITE NEG (NEG); URINE PH 6.5 (4.5-7.5); URINE SPECIFIC GRAVITY 1.004 (1.000-1.030); UROBILINOGEN NEG (NEG); ZZUR CULT IF INDIC CLEAN CATCH NO
[2016-12-01 18:37] LABS: MANUAL MICROSCOPIC REQUIRED? NO; REVIEW REQ? NO
[2016-12-01 19:10] VITALS: BP 113/81; PULSE 81; TEMP 36.6; O2SAT 98
[2016-12-01] MEDS ORDERED: ONDA4TAB10 SL (19:19)
== END 2016-12-01 19:15 | disposition home or self-care (01) ==
LOC: C.EDB 14:10
DX: R10.32 Left lower quadrant pain (principal); N83.209 Unspecified ovarian cyst, unspecified side; F17.200 Nicotine dependence, unspecified, uncomplicated; Z98.51 Tubal ligation status; Z90.49 Acquired absence of other specified parts of digestive tract; Z79.899 Other long term (current) drug therapy; Z88.5 Allergy status to narcotic agent; Z82.0 Family history of epilepsy and other diseases of the nervous system

== ENCOUNTER 2017-03-13 15:21 | Emergency (ER) | payer BC ==
[~2017-03-13] VITALS: Ht 152.4 cm; Wt 86.0 kg
[~2017-03-13 15:21] MED LIST changes: -CITA20TA4 PO; +GABA-113 PO; +ONDA4TAB10 SL
[2017-03-13 15:34] VITALS: Ht 152.4 cm; Wt 86.0 kg
[2017-03-13] MEDS ORDERED: HYDROmorphone INJ 1 MG/ML SYR IV STA (16:17)
[2017-03-13] MEDS ORDERED: MAGNESIUM SULFATE 1GM / D5W 1 GM BAG IV STA (16:17)
[2017-03-13] MEDS ORDERED: DiphenhydrAMINE HCL 50 MG/ML VIAL IV STA (16:17)
[2017-03-13] MEDS ORDERED: KETOROLAC TROMETHAMINE 30 MG/ML VIAL IV STA (16:17)
[2017-03-13] MEDS ORDERED: PROCHLORPERAZINE 5 MG/ML 2 ML VIAL IV STA (16:17)
--- NOTE | 2017-03-13 16:19 | EMERGENCY ROOM VISIT NOTE ---
History Report prepared by Dominguez: Dolly Scott Under the Supervision of: Dr. Gabe Gotti M.D. First contact with patient: 16:11 Chief Complaint: FACIAL PAIN/INJURY Stated Complaint: FACE PAIN-TRIGEMINAL NEURALGIA History of Present Illness The patient is a 32 year old female who presents to the Emergency Room with complaints of constant facial pain beginning this morning. The patient has a history of trigeminal neuralgia. She state she has not had a flare up in a couple months but notes this feels like a normal flare up. She notes some neck pain but denies any back pain. The patient would like help with pain management and will follow up with her neurologist this week. She notes taking Neurontin and two Vicodin 6 hours ago. The patient is allergic to morphine. Source of History: patient Onset: this morning Position: other (face) Timing: constant Associated Symptoms: + neck pain, No back pain Review of Systems See HPI for pertinent positives & negatives. A total of 10 systems reviewed and were otherwise negative. Past Medical & Surgical Medical Problems: (1) Ovarian cyst Surgical Problems: (1) H/O section (2) H/O tubal ligation (3) History of cholecystectomy Family History Ovarian fibroids (mother) Seizures Social History Smoking Status: Never Smoker Alcohol Use: none Drug Use: none Marital Status: in relationship Housing Status: lives with significant other Occupation Status: employed Current/Historical Medications Scheduled Gabapentin (Neurontin), 300 MG PO TID Scheduled PRN Hydrocodone/Acetaminophen 5MG/325MG ([place] 5MG/325MG), 1 TABLET PO Q6 PRN for Pain Sumatriptan Succinate (Imitrex), 100 MG PO UD PRN for Headache Allergies Coded Allergies: Morphine (Verified Allergy, Unknown, RASH,GI UPSET,MIGRAINE, 12/01/16) Physical Exam Vital Signs Date Time Temp Pulse Resp B/P (MAP) Pulse Ox O2 Delivery O2 Flow Rate FiO2 03/13/17 18:15 72 16 110/58 98 03/13/17 18:15 37.0 72 16 110/58 98 03/13/17 17:35 71 16 121/77 98 03/13/17 16:52 72 16 118/77 98 03/13/17 15:34 37.0 88 16 153/97 98 Physical Exam GENERAL: Patient is a healthy-appearing well-nourished female HEAD: Normocephalic atraumatic. No evidence of meningitis or encephalitis on exam. EYES: Ocular movements intact pupils equal and react to light OROPHARYNX mucous membranes are moist no exudates present no erythema or edema present NECK: Supple no nuchal rigidity CHEST: Good equal expansion LUNGS: Clear and equal to auscultation CARDIAC: Normal S1 and S2 ABDOMEN: Soft nontender no guarding BACK: No CVA tenderness EXTREMITIES: No pain upon palpation normal muscle strength in all groups no clubbing cyanosis or edema NEURO: Patient is following commands and answering questions appropriately. Alert and oriented x3 Cranial Nerves 2-12 grossly intact Medical Decision & Procedures Medications Administered Medications (Trade) Dose Ordered Sig/Sallie Route Start Time Stop Time Status Last Admin Dose Admin Hydromorphone HCl (Dilaudid Inj) 1 mg NOW STAT IV 03/13/17 16:17 03/13/17 16:19 DC 03/13/17 16:35 1 MG Diphenhydramine HCl (Benadryl Inj) 25 mg NOW STAT IV 03/13/17 16:17 03/13/17 16:19 DC 03/13/17 16:31 25 MG Prochlorperazine Edisylate (Compazine Inj) 10 mg NOW STAT IV 03/13/17 16:17 03/13/17 16:19 DC 03/13/17 16:33 10 MG Ketorolac Tromethamine (Toradol Inj) 30 mg NOW STAT IV 03/13/17 16:17 03/13/17 16:19 DC 03/13/17 16:32 30 MG Magnesium Sulfate (Magnesium Sulfate) 1 gm NOW STAT IV 03/13/17 16:17 03/13/17 16:19 DC 03/13/17 16:36 1 GM Dexamethasone Sodium Phosphate 10 mg/Syringe 2.5 ml @ 1 mls/min NOW STAT IV 03/13/17 17:11 03/13/17 17:13 DC 03/13/17 17:59 1 MLS/MIN ED Course 1614: Past medical records reviewed. The patient was evaluated in room C1B . A complete history and physical examination was performed. 1617: Magnesium Sulfate 1 gm IV, Toradol 30 mg IV, Compazine Inj 10 mg IV, Benadryl Inj 25 mg IV, Dilaudid Inj 1 mg IV. 1703: I reevaluated the patient, she is resting comfortably. 1711: Dexamethasone Sodium Phospate 10 mg/ Syringe 2.5 ml @ 1 mls/min IV. 1725: Upon reexamination the patient is resting. I discussed results and treatment plan with the patient. She verbalizes agreement and understanding. The patient is ready for discharge. Medical Decision Differential diagnosis: Etiologies such as migraine headache, meningitis, sinusitis, CO exposure, ICH, SAH, infection, tumor, headache, sinus thrombosis, arterial dissection, as well as others were entertained. This is a 32-year-old female who presents emergency department complaining of left-sided head pain. The patient has a history of trigeminal neuralgia and is here for pain relief. She has not been able to follow-up with her primary care physician or her neurologist. 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 She has no evidence of meningitis encephalitis on examination and the patient is not here for diagnostic reasons. For this reason IV was established, the patient was given Toradol, Compazine, Benadryl, Dilaudid. Repeat examination revealed improvement in the patient's symptoms. The patient was also given Decadron to prevent the patient coming back. Patient was in agreement with the treatment plan. [place] Drug Monitoring Program Search Results: patient reviewed within database Drug Monitoring Findings: The patient gets 56 norco pills every 2 weeks. Blood Pressure Screening Patient's blood pressure: Elevated blood pressure Blood pressure disposition: Referred to PCP Impression Primary Impression: Headache Additional Impression: Hypertension Scribe Attestation The scribe's documentation has been prepared under my direction and personally reviewed by me in its entirety. I confirm that the note above accurately reflects all work, treatment, procedures, and medical decision making performed by me. Departure Information Dispostion Home / Self-Care Referrals Benjie Nieto M.D. (PCP) Forms HOME CARE DOCUMENTATION FORM, IMPORTANT VISIT INFORMATION Patient Instructions ED Neuralgia Trigeminal, My [facility] Additional Instructions Follow up with Dr Weber's office You were found to have an elevated blood pressure today (>120 sytolic or >90 diastolic). Per medicare guidelines, you need to follow up with this blood pressure screening with your Primary Care Physician (PCP). For a new PCP call [phone]. You received narcotic or benzodiazepene medication while in the emergency room today. This is an addictive medication that may cause drowziness as well as constipation. Do not drive, operate heavy machinery, or drink alcohol under the influence of this medication. You have been examined and treated today on an emergency basis only. This is not a substitute for, or an effort to provide, complete comprehensive medical care. It is impossible to recognize and treat all injuries or illnesses in a single emergency department visit. It is therefore important that you follow up closely with Dr Thurston. Call as soon as possible for an appointment. Thank you for your time and consideration. I look forward to speaking with you again soon. Please don't hesitate to call us if you have any questions. Problem Qualifiers Primary Impression: Headache Headache type: unspecified Headache chronicity pattern: unspecified pattern Intractability: not intractable Qualified Codes: R51 - Headache Additional Impression: Hypertension Hypertension type: unspecified Qualified Codes: I10 - Essential (primary) hypertension
[2017-03-13] MEDS ORDERED: HYDR-5688 PO (16:48)
[2017-03-13] MEDS ORDERED: DEXAMETHASONE INJ 10 MG in SYRINGE 0 ML IV STA (17:11)
[2017-03-13 18:15] VITALS: BP 110/58; PULSE 72; TEMP 37; O2SAT 98
== END 2017-03-13 18:45 | disposition home or self-care (01) ==
LOC: C.EDB 15:22 → C.EDC 18:45
DX: R51 Headache (principal); I10 Essential (primary) hypertension; Z90.49 Acquired absence of other specified parts of digestive tract; Z98.891 History of uterine scar from previous surgery; Z98.51 Tubal ligation status; Z82.0 Family history of epilepsy and other diseases of the nervous system; Z84.89 Family history of other specified conditions

== ENCOUNTER 2017-05-08 14:41 | Emergency (ER) | payer BC ==
[~2017-05-08] VITALS: Ht 152.4 cm; Wt 88.0 kg
[~2017-05-08 14:41] MED LIST changes: -GABA-113 PO; -ONDA4TAB10 SL
[2017-05-08 14:44] VITALS: TEMP 36.5; Ht 152.4 cm; Wt 88.0 kg
[2017-05-08] MEDS ORDERED: GABA-113 PO (15:01)
[2017-05-08] MEDS ORDERED: KETOROLAC TROMETHAMINE 30 MG/ML VIAL IV STA (15:44)
[2017-05-08] MEDS ORDERED: ONDANSETRON INJ 2 MG/ML 2 ML VIAL IV STA (15:44)
--- NOTE | 2017-05-08 15:57 | EMERGENCY ROOM VISIT NOTE ---
History Report prepared by Dominguez: Osmani Scales Under the Supervision of: Dr. Josue Melchor M.D. First contact with patient: 15:35 Chief Complaint: ABDOMINAL PAIN Stated Complaint: LOWER BACK & AB PAIN;VOMITING History of Present Illness The patient is a 32 year old female who presents to the Emergency Room with complaints of left sided lower back pain that the patient began to experience 1.5 weeks ago. The patient states that the pain started to radiate into her left lower abdominal quadrant today as well. She currently rates the pain as a 4 /10 in severity, and notes that eating food makes the pain worse. She has been vomiting over the past couple of days as well. She has had a kidney stone in the past, but did not need intervention. The patient denies any fevers or urinary symptoms. She also has a history of ovarian cyst, this did not need surgical intervention either. The patient did take a hydrocodone today, which she is prescribed for Trigeminal Neuralgia. She began her Menstrual cycle last Sunday, then did not notice blood Sunday or Sunday. She noticed some menstrual spotting today. The patient visited [facility] last week and was diagnosed with a pinched nerve. A review of the patient's EMR shows that she has had 8 CTs of the abdomen and pelvis in the past 5 years, as well as 5 pelvic US studies. 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 A total of 10 systems reviewed and were otherwise negative. Past Medical & Surgical Medical Problems: (1) Ovarian cyst Surgical Problems: (1) H/O section (2) H/O tubal ligation (3) History of cholecystectomy Family History Ovarian fibroids (mother) Seizures Social History Smoking Status: Never Smoker Alcohol Use: none Drug Use: none Marital Status: in relationship Housing Status: lives with significant other Occupation Status: employed Current/Historical Medications Scheduled Gabapentin (Neurontin), 300 MG PO TID Ondasetron Odt (Zofran Odt), 4 MG SL Q6H Scheduled PRN Hydrocodone/Acetaminophen 5MG/325MG ([place] 5MG/325MG), 1 TABLET PO Q6 PRN for Pain Sumatriptan Succinate (Imitrex), 100 MG PO UD PRN for Headache Allergies Coded Allergies: Morphine (Verified Allergy, Unknown, RASH,GI UPSET,MIGRAINE, 12/01/16) Physical Exam Vital Signs Date Time Temp Pulse Resp B/P (MAP) Pulse Ox O2 Delivery O2 Flow Rate FiO2 05/08/17 18:01 86 117/73 96 Room Air 05/08/17 16:15 86 123/89 97 Room Air 05/08/17 14:44 36.5 103 16 158/86 98 Room Air Physical Exam GENERAL: Patient is in no acute distress. HEENT: No acute trauma, normocephalic atraumatic, mucous membranes moist, no nasal congestion, no scleral icterus. NECK: No stridor, no adenopathy, no meningismus, trachea is midline. LUNGS: Clear to auscultation bilaterally, no wheeze, no rhonchi, breath sounds equal. HEART: Without murmurs gallops or rubs, regular rate and rhythm. ABDOMEN: Soft, mildly tender along entire left side, bowel sounds positive, no hernias, no peritonitis. BACK: Left flank discomfort with percussion EXTREMITIES: No cyanosis or edema, full range of motion of all the joints without pain or difficulty, no signs for acute trauma. NEUROLOGIC: Oriented x 3, no acute motor or sensory deficits, no focal weakness. SKIN: No rash, no jaundice, no diaphoresis. Medical Decision & Procedures ER Provider Diagnostic Interpretation: Radiology results as stated below per my review and radiologist interpretation: KUB CLINICAL HISTORY: Abdominal pain COMPARISON STUDY: No previous studies for comparison. FINDINGS: There are surgical clips within the right upper quadrant consistent with a prior cholecystectomy. There is no pathologic bowel dilatation. No renal calculi are visualized. There are nonspecific pelvic basin calcifications, which in the absence of renal colic, likely represent phleboliths. IMPRESSION: 1. No evidence of pathologic bowel dilatation 2. Nonspecific pelvic basin calcifications, likely representing phleboliths Electronically signed by: Barrett Perez M.D. 05/08/2017 6:02 PM Dictated Date/Time: 05/08/2017 6:01 PM ULTRASOUND OF THE PELVIS CLINICAL HISTORY: Pelvic pain. COMPARISON STUDY: Pelvic CT dated 12/01/2016. TECHNIQUE: Real-time, grayscale, and color flow sonography of the pelvis is performed both transabdominally and endovaginally. Images are reviewed in the transverse and longitudinal planes. FINDINGS: Uterus: The retroverted uterus is normal in size and echotexture, measuring 8.4 x 4.5 x 5.2 cm. Endometrium: The endometrium is normal in appearance, and the endometrial stripe is normal in thickness measuring up to 0.6 cm. Ovaries: The ovaries are normal in size and morphology. The right ovary measures 4.0 x 2.2 x 1.7 cm and the left ovary measures 3.8 x 2.5 x 2.4 cm. Small ovarian follicles are seen bilaterally. Normal Doppler waveforms are shown within both ovaries. Pelvis: There is trace free fluid in the cul-de-sac. No concerning adnexal lesion is seen. IMPRESSION: 1. No acute sonographic abnormalities identified in the pelvis. 2. There is trace and likely physiologic free fluid in the cul-de-sac. Electronically signed by: Josue Navarro M.D. 05/08/2017 5:57 PM Dictated Date/Time: 05/08/2017 5:56 PM ULTRASOUND OF THE PELVIS CLINICAL HISTORY: Pelvic pain. COMPARISON STUDY: Pelvic CT dated 12/01/2016. TECHNIQUE: Real-time, grayscale, and color flow sonography of the pelvis is performed both transabdominally and endovaginally. Images are reviewed in the transverse and longitudinal planes. FINDINGS: Uterus: The retroverted uterus is normal in size and echotexture, measuring 8.4 x 4.5 x 5.2 cm. Endometrium: The endometrium is normal in appearance, and the endometrial stripe is normal in thickness measuring up to 0.6 cm. Ovaries: The ovaries are normal in size and morphology. The right ovary measures 4.0 x 2.2 x 1.7 cm and the left ovary measures 3.8 x 2.5 x 2.4 cm. Small ovarian follicles are seen bilaterally. Normal Doppler waveforms are shown within both ovaries. Pelvis: There is trace free fluid in the cul-de-sac. No concerning adnexal lesion is seen. IMPRESSION: 1. No acute sonographic abnormalities identified in the pelvis. 2. There is trace and likely physiologic free fluid in the cul-de-sac. Electronically signed by: Josue Navarro M.D. 05/08/2017 5:57 PM Dictated Date/Time: 05/08/2017 5:56 PM ULTRASOUND KIDNEYS AND BLADDER CLINICAL HISTORY: Left flank pain. COMPARISON STUDY: Abdominal CT dated 12/01/2016. TECHNIQUE: Real-time, grayscale, and color flow sonography of the kidneys and bladder is performed. Images are reviewed in the transverse and longitudinal planes. FINDINGS: Kidneys: The kidneys are normal in size and echotexture. The right kidney measures 10.0 x 5.3 x 5.6 cm and the left kidney measures 11.7 x 6.0 x 6.7 cm. There is no hydronephrosis. No shadowing renal calculi are identified. There is no sonographic evidence of contour deforming renal mass lesion. No perinephric fluid is identified. Bladder: The bladder is normal in appearance. Bilateral ureteral jets were seen. IMPRESSION: Unremarkable sonographic assessment of the kidneys and bladder. Electronically signed by: Josue Navarro M.D. 05/08/2017 5:58 PM Dictated Date/Time: 05/08/2017 5:58 PM Laboratory Results 05/08/17 16:18 Red Blood Count 4.36, Mean Corpuscular Volume 84.2, Mean Corpuscular Hemoglobin 27.5, Mean Corpuscular Hemoglobin Concent 32.7, Mean Platelet Volume 8.3, Neutrophils (%) (Auto) 64.1, Lymphocytes (%) (Auto) 27.4, Monocytes (%) (Auto) 5.1, Eosinophils (%) (Auto) 3.0, Basophils (%) (Auto) 0.2, Neutrophils # (Auto) 5.54, Lymphocytes # (Auto) 2.37, Monocytes # (Auto) 0.44, Eosinophils # (Auto) 0.26, Basophils # (Auto) 0.02 05/08/17 16:18 Test 05/08/17 16:02 05/08/17 16:18 Urine Color YELLOW Urine Appearance CLEAR (CLEAR) Urine pH 6.5 (4.5-7.5) Urine Specific [place] 1.017 (1.000-1.030) Urine Protein NEG (NEG) Urine Glucose (UA) NEG (NEG) Urine Ketones NEG (NEG) Urine Occult Blood TRACE (NEG) Urine Nitrite NEG (NEG) Urine Bilirubin NEG (NEG) Urine Urobilinogen NEG (NEG) Urine Leukocyte Esterase NEG (NEG) Urine WBC (Auto) 1-5 /hpf (0-5) Urine RBC (Auto) 0-4 /hpf (0-4) Urine Hyaline Casts (Auto) 0 /lpf (0-5) Urine Epithelial Cells (Auto) 10-20 /lpf (0-5) Urine Bacteria (Auto) NEG (NEG) White Blood Count 8.65 K/uL (4.8-10.8) Red Blood Count 4.36 M/uL (4.2-5.4) Hemoglobin 12.0 g/dL (12.0-16.0) Hematocrit 36.7 % (37-47) Mean Corpuscular Volume 84.2 fL (80-100) Mean Corpuscular Hemoglobin 27.5 pg (25-34) Mean Corpuscular Hemoglobin Concent 32.7 g/dl (32-36) Platelet Count 393 K/uL (130-400) Mean Platelet Volume 8.3 fL (7.4-10.4) Neutrophils (%) (Auto) 64.1 % Lymphocytes (%) (Auto) 27.4 % Monocytes (%) (Auto) 5.1 % Eosinophils (%) (Auto) 3.0 % Basophils (%) (Auto) 0.2 % Neutrophils # (Auto) 5.54 K/uL (1.4-6.5) Lymphocytes # (Auto) 2.37 K/uL (1.2-3.4) Monocytes # (Auto) 0.44 K/uL (0.11-0.59) Eosinophils # (Auto) 0.26 K/uL (0-0.5) Basophils # (Auto) 0.02 K/uL (0-0.2) RDW Standard Deviation 43.2 fL (36.4-46.3) RDW Coefficient of Variation 13.9 % (11.5-14.5) Immature Granulocyte % (Auto) 0.2 % Immature Granulocyte # (Auto) 0.02 K/uL (0.00-0.02) Anion Gap 7.0 mmol/L (3-11) Est Creatinine Clear Calc Drug Dose 111.7 ml/min Estimated GFR () 131.0 Estimated GFR (Non- 113.0 BUN/Creatinine Ratio 13.3 (10-20) Calcium Level 8.9 mg/dl (8.5-10.1) Total Bilirubin 0.1 mg/dl (0.2-1) Aspartate Amino Transf (AST/SGOT) 14 U/L (15-37) Alanine Aminotransferase (ALT/SGPT) 22 U/L (12-78) Alkaline Phosphatase 81 U/L (45-117) Total Protein 7.1 gm/dl (6.4-8.2) Albumin 3.3 gm/dl (3.4-5.0) Globulin 3.8 gm/dl (2.5-4.0) Albumin/Globulin Ratio 0.9 (0.9-2) Lipase 122 U/L (73-393) Human Chorionic Gonadotropin, Qual NEG (NEG) Laboratory results reviewed by me. Medications Administered Medications (Trade) Dose Ordered Sig/Sallie Route Start Time Stop Time Status Last Admin Dose Admin Ondansetron HCl (Zofran Inj) 4 mg NOW STAT IV 05/08/17 15:44 05/08/17 15:47 DC 05/08/17 16:18 4 MG Ketorolac Tromethamine (Toradol Inj) 30 mg NOW STAT IV 05/08/17 15:44 05/08/17 15:47 DC 05/08/17 16:19 30 MG ED Course 1544: Ordered Toradol 30 mg IV, Zofran 4 mg IV. 1549: The patient was evaluated in room B8. A complete history and physical exam was performed. A review of the patient's EMR shows that she has had 8 CTs of the abdomen and pelvis in the past 5 years, as well as 5 pelvic US studies. 181: Reevaluated the patient. Discussed results and discharge instructions: She verbalized understanding and agreement. The patient is ready for discharge. Medical Decision Differential Diagnosis includes; Renal colic, musculoskeletal pain, hydronephrosis, UTI, ovarian cyst, hernia, renal failure, . There is no leukocytosis or concerning anemia. No significant electrolyte abnormality, kidney failure, hepatitis or pancreatitis. testing is negative. Urinalysis does not show significant hematuria or evidence for infection. KUB does not show bowel obstruction, some mild constipation was seen. Renal ultrasound shows no hydronephrosis, bilateral ureteral jets were seen. Pelvic ultrasound does not show evidence for ovarian cyst or for ovarian torsion. The patient received IV Zofran and IV Toradol, she is resting comfortably. At this point, the cause for the pain is unclear. I did discuss the possibility of musculoskeletal pain. The patient has had issues similar to the current complaints in the past. She's had multiple workups for similar pain and has had multiple abdominal and pelvic CT scans. The patient is being discharged to follow with her doctors office. Motrin, Zofran, massage and heat were suggested. Medication Reconcilliation Current Medication List: was personally reviewed by me Blood Pressure Screening Patient's blood pressure: Elevated blood pressure Blood pressure disposition: Elevated BP felt to be situational Impression Primary Impression: Flank pain Additional Impression: Left lower quadrant abdominal pain of unknown etiology Scribe Attestation The scribe's documentation has been prepared under my direction and personally reviewed by me in its entirety. I confirm that the note above accurately reflects all work, treatment, procedures, and medical decision making performed by me. Departure Information Dispostion Home / Self-Care Prescriptions Ondasetron Odt (ZOFRAN ODT) 4 Mg Tab 4 MG SL Q6H for Nausea, #10 TAB Prov: Josue Melchor M.D. 05/08/17 Referrals Benjie Nieto M.D. (PCP) Forms Call Back Authorization, HOME CARE DOCUMENTATION FORM, IMPORTANT VISIT INFORMATION Patient Instructions My [facility] [employer] Additional Instructions motrin 600 mg 3x per day for 4 days heat to the sore areas massage may help rest zofran 1 tab every 6 hours for nausea testing was all ok today see olegario cason for a recheck this week return for worsening symptoms as we discussed Problem Qualifiers
[2017-05-08 16:33] LABS: BASO % 0.2 %; BASO ABS # 0.02 K/uL (0-0.2); EOS ABS # 0.26 K/uL (0-0.5); HEMATOCRIT 36.7 % (37-47); IG# 0.02 K/uL (0.00-0.02); LYMPH % 27.4 %; LYMPH ABS # 2.37 K/uL (1.2-3.4); MEAN CELL VOLUME 84.2 fL (80-100); MEAN CORPUSCULAR HEMOGLOBIN 27.5 pg (25-34); MEAN CORPUSCULAR HGB CONC 32.7 g/dl (32-36); MEAN PLATELET VOLUME 8.3 fL (7.4-10.4); MONO % 5.1 %; MONO ABS # 0.44 K/uL (0.11-0.59); NEUT % 64.1 %; NEUT ABS # 5.54 K/uL (1.4-6.5); PLATELET COUNT 393 K/uL (130-400); RED CELL DISTRIBUTION WIDTH CV 13.9 % (11.5-14.5); RED CELL DISTRIBUTION WIDTH SD 43.2 fL (36.4-46.3); WHITE BLOOD COUNT 8.65 K/uL (4.8-10.8)
[2017-05-08] MEDS ORDERED: HYDR-5688 PO (16:48)
[2017-05-08 17:09] LABS: ALBUMIN 3.3 gm/dl (3.4-5.0); CALCIUM 8.9 mg/dl (8.5-10.1); CREATININE 0.7 mg/dl (0.60-1.20); POTASSIUM 3.5 mmol/L (3.5-5.1); TOTAL PROTEIN 7.1 gm/dl (6.4-8.2)
--- NOTE | 2017-05-08 17:59 | DIAGNOSTIC IMAGING REPORT ---
ULTRASOUND OF THE PELVIS CLINICAL HISTORY: Pelvic pain. COMPARISON STUDY: Pelvic CT dated 12/01/2016. TECHNIQUE: Real-time, grayscale, and color flow sonography of the pelvis is performed both transabdominally and endovaginally. Images are reviewed in the transverse and longitudinal planes. FINDINGS: Uterus: The retroverted uterus is normal in size and echotexture, measuring 8.4 x 4.5 x 5.2 cm. Endometrium: The endometrium is normal in appearance, and the endometrial stripe is normal in thickness measuring up to 0.6 cm. Ovaries: The ovaries are normal in size and morphology. The right ovary measures 4.0 x 2.2 x 1.7 cm and the left ovary measures 3.8 x 2.5 x 2.4 cm. Small ovarian follicles are seen bilaterally. Normal Doppler waveforms are shown within both ovaries. Pelvis: There is trace free fluid in the cul-de-sac. No concerning adnexal lesion is seen. IMPRESSION: 1. No acute sonographic abnormalities identified in the pelvis. 2. There is trace and likely physiologic free fluid in the cul-de-sac. Electronically signed by: Josue Navarro M.D. 05/08/2017 5:57 PM Dictated Date/Time: 05/08/2017 5:56 PM
--- NOTE | 2017-05-08 18:00 | DIAGNOSTIC IMAGING REPORT ---
ULTRASOUND KIDNEYS AND BLADDER CLINICAL HISTORY: Left flank pain. COMPARISON STUDY: Abdominal CT dated 12/01/2016. TECHNIQUE: Real-time, grayscale, and color flow sonography of the kidneys and bladder is performed. Images are reviewed in the transverse and longitudinal planes. FINDINGS: Kidneys: The kidneys are normal in size and echotexture. The right kidney measures 10.0 x 5.3 x 5.6 cm and the left kidney measures 11.7 x 6.0 x 6.7 cm. There is no hydronephrosis. No shadowing renal calculi are identified. There is no sonographic evidence of contour deforming renal mass lesion. No perinephric fluid is identified. Bladder: The bladder is normal in appearance. Bilateral ureteral jets were seen. IMPRESSION: Unremarkable sonographic assessment of the kidneys and bladder. Electronically signed by: Josue Navarro M.D. 05/08/2017 5:58 PM Dictated Date/Time: 05/08/2017 5:58 PM
[2017-05-08 18:01] VITALS: BP 117/73; PULSE 86; O2SAT 96
--- NOTE | 2017-05-08 18:04 | DIAGNOSTIC IMAGING REPORT ---
KUB CLINICAL HISTORY: Abdominal pain COMPARISON STUDY: No previous studies for comparison. FINDINGS: There are surgical clips within the right upper quadrant consistent with a prior cholecystectomy. There is no pathologic bowel dilatation. No renal calculi are visualized. There are nonspecific pelvic basin calcifications, which in the absence of renal colic, likely represent phleboliths. IMPRESSION: 1. No evidence of pathologic bowel dilatation 2. Nonspecific pelvic basin calcifications, likely representing phleboliths Electronically signed by: Barrett Perez M.D. 05/08/2017 6:02 PM Dictated Date/Time: 05/08/2017 6:01 PM
[2017-05-08] MEDS ORDERED: ONDA4TAB10 SL (18:19)
== END 2017-05-08 18:26 | disposition home or self-care (01) ==
LOC: C.EDB 14:44
DX: R10.32 Left lower quadrant pain (principal); R11.10 Vomiting, unspecified; K59.00 Constipation, unspecified; R03.0 Elevated blood-pressure reading, without diagnosis of hypertension; Z87.442 Personal history of urinary calculi; Z84.2 Family history of other diseases of the genitourinary system; Z82.0 Family history of epilepsy and other diseases of the nervous system

== ENCOUNTER 2017-06-28 15:53 | Emergency (ER) | payer BC ==
[~2017-06-28] VITALS: Ht 152.4 cm; Wt 86.0 kg
[~2017-06-28 15:53] MED LIST changes: +GABA-113 PO; +ONDA4TAB10 SL
[2017-06-28 15:59] VITALS: TEMP 36.8; Ht 152.4 cm; Wt 86.0 kg
[2017-06-28] MEDS ORDERED: HYDR-5688 PO (16:48)
[2017-06-28] MEDS ORDERED: ONDANSETRON INJ 2 MG/ML 2 ML VIAL IV STA (17:23)
[2017-06-28] MEDS ORDERED: SODIUM CHLORIDE 0.9% 1000ML 1,000 ML IV STA (17:23)
[2017-06-28] MEDS ORDERED: HYDROmorphone INJ 0.5 MG/0.5 ML SYR IV STA (17:37)
[2017-06-28] MEDS ORDERED: IMT100 PO (17:42)
[2017-06-28] MEDS ORDERED: GABA-1219 PO (17:42)
[2017-06-28] MEDS ORDERED: ONDA4TAB10 SL (17:43)
[2017-06-28 18:06] LABS: BASO % 0.3 %; BASO ABS # 0.03 K/uL (0-0.2); EOS % 2.3 %; EOS ABS # 0.26 K/uL (0-0.5); HEMOGLOBIN 12.6 g/dL (12.0-16.0); IG# 0.03 K/uL (0.00-0.02); LYMPH % 26.5 %; LYMPH ABS # 2.95 K/uL (1.2-3.4); MEAN CELL VOLUME 84.1 fL (80-100); MEAN CORPUSCULAR HEMOGLOBIN 27.9 pg (25-34); MEAN CORPUSCULAR HGB CONC 33.2 g/dl (32-36); MEAN PLATELET VOLUME 8.4 fL (7.4-10.4); MONO ABS # 0.67 K/uL (0.11-0.59); NEUT % 64.6 %; NEUT ABS # 7.19 K/uL (1.4-6.5); PLATELET COUNT 455 K/uL (130-400); RED CELL DISTRIBUTION WIDTH CV 13.9 % (11.5-14.5); RED CELL DISTRIBUTION WIDTH SD 42.8 fL (36.4-46.3); WHITE BLOOD COUNT 11.13 K/uL (4.8-10.8)
[2017-06-28 18:23] LABS: ALBUMIN 3.4 gm/dl (3.4-5.0); CALCIUM 8.9 mg/dl (8.5-10.1); CREATININE 0.72 mg/dl (0.60-1.20); POTASSIUM 3.8 mmol/L (3.5-5.1)
[2017-06-28 18:25] LABS: TOTAL PROTEIN 7.6 gm/dl (6.4-8.2)
--- NOTE | 2017-06-28 20:09 | DIAGNOSTIC IMAGING REPORT ---
ABD/PELVIS IV AND ORAL CONT CLINICAL HISTORY: 32 years-old Female presenting with RLQ abd pain. TECHNIQUE: Multidetector CT of the abdomen and pelvis was performed after the administration of oral and intravenous contrast. IV contrast: 94 mL of Optiray 320. A dose lowering technique was used consistent with the principles of ALARA (as low as reasonably achievable). COMPARISON: 12/01/2016. CT DOSE (mGy.cm): The estimated cumulative dose is 709.27 mGy.cm. 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 Lung bases: Minimal basilar opacities, likely atelectasis. Normal heart size. No pericardial or pleural effusion. Liver: Normal morphology. No liver lesion. Patent hepatic vasculature. Biliary: Mild biliary ductal prominence likely a reservoir effect in the post cholecystectomy state. Gallbladder surgically absent. Pancreas: Normal. Spleen: Normal. Adrenal glands: Normal. Kidneys and ureters: Normal. No hydronephrosis. Duplicated left renal collecting system. Bladder: Normal. Pelvic organs: Uterus and ovaries normal. Bowel: Normal appendix. No bowel obstruction. Peritoneal cavity: No free fluid or intraperitoneal gas. Lymph nodes: No enlarged lymph nodes in the abdomen or pelvis. Vasculature: Aorta and IVC patent and normal in caliber. Abdominal wall: Normal. Musculoskeletal: Normal. IMPRESSION: 1. No acute intra-abdominal pathology. Electronically signed by: Chris Michaels M.D. 06/28/2017 8:08 PM Dictated Date/Time: 06/28/2017 8:04 PM
[2017-06-28] MEDS ORDERED: NORCO 5/325MG HOME PACK PO STA (20:33)
--- NOTE | 2017-06-28 20:37 | EMERGENCY ROOM VISIT NOTE ---
History First contact with patient: 17:03 Chief Complaint: ABDOMINAL PAIN Stated Complaint: STOMACH PAIN, RT SIDE History of Present Illness The patient is a 32 year old female who presents to the Emergency Room via private vehicle with complaints of "stomach pain, right side". The patient states that for the past 3 days she has been experiencing pain in the right lower quadrant. She notes that it began Sunday night as a sharp pain while sitting on the couch. She notes that pain increased throughout Sunday, and is now constant and sharp in nature. It is increased to what is now a 6/10. There is no correlation with eating. It is worse with movement. Tylenol provides no relief. She had a warm bath without relief. Last night she had a bowel movement which was normal. She has nausea, decreased appetite and radiation to the back. It is mild. She denies any fever, chest pain, shortness of breath, lung problems, urinary symptoms. She denies any chance of sexually transmitted infection, and notes monogamous relationship 15 years. There is no pelvic pain. Review of Systems A complete 10-point Review of Systems was discussed with the patient, with pertinent positives and negatives listed in the History of Present Illness. All remaining Review of Systems questions can be considered negative unless otherwise specified. Past Medical/Surgical History Medical Problems: (1) Ovarian cyst Surgical Problems: (1) H/O section (2) H/O tubal ligation (3) History of cholecystectomy Family History Ovarian fibroids (mother) Seizures Social History Smoking Status: Current Every Day Smoker Alcohol Use: none Drug Use: none Marital Status: in relationship Housing Status: lives with significant other Occupation Status: employed Current/Historical Medications Scheduled Gabapentin (Gabapentin), 300 MG PO TID Scheduled PRN Hydrocodone/Acetaminophen 5MG/325MG ([place] 5MG/325MG), 1 TABLET PO Q6H PRN for Pain Ondasetron Odt (Zofran Odt), 4 MG SL Q6H PRN for Nausea Sumatriptan Succinate (Imitrex), 100 MG PO UD PRN for Headache Physical Exam Vital Signs Date Time Temp Pulse Resp B/P (MAP) Pulse Ox O2 Delivery O2 Flow Rate FiO2 06/28/17 21:08 89 20 122/85 97 06/28/17 20:36 85 16 94 06/28/17 20:21 83 11 96 06/28/17 20:06 87 18 93 06/28/17 19:36 82 17 95 06/28/17 19:31 102/62 06/28/17 19:30 82 18 96 Room Air 06/28/17 19:15 86 15 97 06/28/17 19:00 79 18 115/77 97 06/28/17 19:00 73 06/28/17 17:50 88 16 131/67 98 Room Air 06/28/17 15:59 36.8 103 20 139/84 97 Room Air Physical Exam VITAL SIGNS - Vital signs and nursing notes were reviewed. Stable. GENERAL -32-year-old female appearing her stated age who is in no acute distress. Communicates well with provider and answers questions appropriately. SKIN - Without rashes. No petechial or meningeal rash. HEAD - NC/AT. EYES - Sclera anicteric. MOUTH/OROPHARYNX - Without perioral cyanosis. NECK - Neck with FROM. LUNGS - Chest wall symmetric without accessory muscle use, intercostals retractions, or central cyanosis. Normal vesicular breath sounds CTA B/L. No wheezes, rales, or rhonchi appreciated. CARDIAC - RRR with S1/S2. No murmur, rubs, or gallops appreciated. ABDOMEN - Abdominal contour normal without pulsations or visible masses. BS normoactive all four quadrants. Right lower quadrant tenderness noted. No palpable masses, hepatosplenomegaly, or ascites noted. Positive psoas, positive obturator, negative rebound. Medical Decision & Procedures ER Provider Diagnostic Interpretation: ABD/PELVIS IV AND ORAL CONT CLINICAL HISTORY: 32 years-old Female presenting with RLQ abd pain. TECHNIQUE: Multidetector CT of the abdomen and pelvis was performed after the administration of oral and intravenous contrast. IV contrast: 94 mL of Optiray 320. A dose lowering technique was used consistent with the principles of ALARA (as low as reasonably achievable). COMPARISON: 12/01/2016. CT DOSE (mGy.cm): The estimated cumulative dose is 709.27 mGy.cm. 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 Lung bases: Minimal basilar opacities, likely atelectasis. Normal heart size. No pericardial or pleural effusion. Liver: Normal morphology. No liver lesion. Patent hepatic vasculature. Biliary: Mild biliary ductal prominence likely a reservoir effect in the post cholecystectomy state. Gallbladder surgically absent. Pancreas: Normal. Spleen: Normal. Adrenal glands: Normal. Kidneys and ureters: Normal. No hydronephrosis. Duplicated left renal collecting system. Bladder: Normal. Pelvic organs: Uterus and ovaries normal. Bowel: Normal appendix. No bowel obstruction. Peritoneal cavity: No free fluid or intraperitoneal gas. Lymph nodes: No enlarged lymph nodes in the abdomen or pelvis. Vasculature: Aorta and IVC patent and normal in caliber. Abdominal wall: Normal. Musculoskeletal: Normal. IMPRESSION: 1. No acute intra-abdominal pathology. Electronically signed by: Chris Michaels M.D. 06/28/2017 8:08 PM Dictated Date/Time: 06/28/2017 8:04 PM Laboratory Results 06/28/17 17:45 Red Blood Count 4.52, Mean Corpuscular Volume 84.1, Mean Corpuscular Hemoglobin 27.9, Mean Corpuscular Hemoglobin Concent 33.2, Mean Platelet Volume 8.4, Neutrophils (%) (Auto) 64.6, Lymphocytes (%) (Auto) 26.5, Monocytes (%) (Auto) 6.0, Eosinophils (%) (Auto) 2.3, Basophils (%) (Auto) 0.3, Neutrophils # (Auto) 7.19, Lymphocytes # (Auto) 2.95, Monocytes # (Auto) 0.67, Eosinophils # (Auto) 0.26, Basophils # (Auto) 0.03 06/28/17 17:45 Test 06/28/17 17:45 06/28/17 18:52 White Blood Count 11.13 K/uL (4.8-10.8) Red Blood Count 4.52 M/uL (4.2-5.4) Hemoglobin 12.6 g/dL (12.0-16.0) Hematocrit 38.0 % (37-47) Mean Corpuscular Volume 84.1 fL (80-100) Mean Corpuscular Hemoglobin 27.9 pg (25-34) Mean Corpuscular Hemoglobin Concent 33.2 g/dl (32-36) Platelet Count 455 K/uL (130-400) Mean Platelet Volume 8.4 fL (7.4-10.4) Neutrophils (%) (Auto) 64.6 % Lymphocytes (%) (Auto) 26.5 % Monocytes (%) (Auto) 6.0 % Eosinophils (%) (Auto) 2.3 % Basophils (%) (Auto) 0.3 % Neutrophils # (Auto) 7.19 K/uL (1.4-6.5) Lymphocytes # (Auto) 2.95 K/uL (1.2-3.4) Monocytes # (Auto) 0.67 K/uL (0.11-0.59) Eosinophils # (Auto) 0.26 K/uL (0-0.5) Basophils # (Auto) 0.03 K/uL (0-0.2) RDW Standard Deviation 42.8 fL (36.4-46.3) RDW Coefficient of Variation 13.9 % (11.5-14.5) Immature Granulocyte % (Auto) 0.3 % Immature Granulocyte # (Auto) 0.03 K/uL (0.00-0.02) Anion Gap 6.0 mmol/L (3-11) Est Creatinine Clear Calc Drug Dose 107.2 ml/min Estimated GFR () 126.6 Estimated GFR (Non- 109.3 BUN/Creatinine Ratio 9.5 (10-20) Calcium Level 8.9 mg/dl (8.5-10.1) Magnesium Level 2.3 mg/dl (1.8-2.4) Total Bilirubin 0.2 mg/dl (0.2-1) Aspartate Amino Transf (AST/SGOT) 15 U/L (15-37) Alanine Aminotransferase (ALT/SGPT) 22 U/L (12-78) Alkaline Phosphatase 93 U/L (45-117) Total Protein 7.6 gm/dl (6.4-8.2) Albumin 3.4 gm/dl (3.4-5.0) Globulin 4.2 gm/dl (2.5-4.0) Albumin/Globulin Ratio 0.8 (0.9-2) Lipase 138 U/L (73-393) Urine Color YELLOW Urine Appearance CLEAR (CLEAR) Urine pH 5.5 (4.5-7.5) Urine Specific [place] 1.011 (1.000-1.030) Urine Protein NEG (NEG) Urine Glucose (UA) NEG (NEG) Urine Ketones NEG (NEG) Urine Occult Blood 3+ (NEG) Urine Nitrite NEG (NEG) Urine Bilirubin NEG (NEG) Urine Urobilinogen NEG (NEG) Urine Leukocyte Esterase NEG (NEG) Urine WBC (Auto) 1-5 /hpf (0-5) Urine RBC (Auto) 0-4 /hpf (0-4) Urine Hyaline Casts (Auto) 1-5 /lpf (0-5) Urine Epithelial Cells (Auto) 20-30 /lpf (0-5) Urine Bacteria (Auto) NEG (NEG) Urine Test NEG (NEG) Medications Administered Medications (Trade) Dose Ordered Sig/Sallie Route Start Time Stop Time Status Last Admin Dose Admin Sodium Chloride 1,000 ml @ 999 mls/hr Q1H1M STAT IV 06/28/17 17:23 06/28/17 18:23 DC 06/28/17 18:03 999 MLS/HR Ondansetron HCl (Zofran Inj) 4 mg NOW STAT IV 06/28/17 17:23 06/28/17 17:27 DC 06/28/17 18:03 4 MG Hydromorphone HCl (Dilaudid Inj) 0.5 mg NOW STAT IV 06/28/17 17:37 06/28/17 17:38 DC 06/28/17 18:03 0.5 MG Acetaminophen/ Hydrocodone Bitart ([place] 5/325mg Home Pack) 1 homepack UD STAT PO 06/28/17 20:33 06/28/17 20:35 DC 06/28/17 20:41 1 HOMEPACK Medical Decision Patient was seen and evaluated as above. She presents to us today with right lower quadrant abdominal pain. She is nontoxic on exam. She is hemodynamically stable. After obtaining a thorough history and physical examination the above work up was performed. She was given fluids, Zofran and Dilaudid. CBC reveals leukocytosis of 11.13. No anemia. Platelet count high at 455. She is to follow-up regarding the elevated platelet count. No concerning metabolic abnormality. Urine reveals 3+ blood, with epithelial cells. Negative test. Patient notes that she has had a tubal ligation. Benefit versus risk of obtaining CT scan was discussed, and the decision was made to scan. Results as above. No acute pathology. I suspect she is either experiencing perhaps a strain of the musculature region of the right anterior abdomen, or perhaps a mild enteritis of which is not appreciable on CT. Regardless, there is no emergent process, and I suspect she is stable for outpatient management. [place] drug monitoring system was reviewed, she was given a home pack of hydrocodone, but notes that she does not need a prescription. She does have previous scripts for hydrocodone for her underlying trigeminal neuralgia. It is important to note that I did discuss that the patient other etiologies that are possible to include but not limited to ovarian torsion and PID. She respectfully declines ultrasound as well as pelvic exam and notes that she would like to follow with her HOSPITAL CLEANING SPECIALIST for this examination. I did discuss with her risks associated with ailments that would be diagnosed through this exam or ultrasound, however she elected to follow with her family doctor, and HOSPITAL CLE[facility]ING SPECIALIST and return with worsening. The patient was educated upon management, had questions answered prior to discharge, and was discharged home in good condition. Case was discussed with the attending physician In the evaluation and treatment of this patient the following differential diagnoses were entertained: Gastroenteritis, ovarian torsion, appendicitis, tubo -ovarian abscess, PID, UTI, contusion, among others. Impression Primary Impression: Abdominal pain Departure Information Dispostion Home / Self-Care Condition GOOD Referrals Benjie Nieto M.D. (PCP) Patient Instructions My [facility] Additional Instructions You have been treated in the Emergency Department your Abdominal Pain. Laboratory results and imaging studies have helped ruled out any emergent causes for your abdominal pain which would warrant admission or surgery. You have been prescribed NORCO to be used for pain control. This is a narcotic medication. You cannot drive or consume alcohol while on this medicine. This medicine should only be used for pain that cannot be controlled with over-the- counter pain medicines. For pain control, you can use the following [id number] medicines (if >12 yo): - Regular strength (325mg/tab) Tylenol (acetaminophen) 2 tabs every 4-6 hours as needed. Do not exceed 12 tablets in a 24 hour period. Avoid taking more than 3 grams (3000 mg) of Tylenol per day. This includes any other sources of acetaminophen you may take on a regular basis. - Regular strength (200 mg/tab) Advil (ibuprofen) 1-2 tabs every 4-6 hours as needed. Do not exceed a dose of 3200 mg per day. Drink plenty of water and stay well hydrated. As with any trip to the Emergency Department, you should follow-up with your Primary Care Provider from today's visit. Please no tylenol/acetaminophen with the norco as it already contains it. Return to the emergency department if your symptoms persist despite treatment plan outlined above or if the following symptoms occur: increased fevers, chills , worsening nausea/vomiting, blood in your stool or urine. Problem Qualifiers Primary Impression: Abdominal pain Abdominal location: right lower quadrant Qualified Codes: R10.31 - Right lower quadrant pain
[2017-06-28 21:08] VITALS: BP 122/85; PULSE 89; O2SAT 97
== END 2017-06-28 21:09 | disposition home or self-care (01) ==
LOC: C.EDB 15:54 → C.EDA 21:09
DX: R10.31 Right lower quadrant pain (principal); R11.0 Nausea